=== PATIENT | female | born 1940 | race Caucasian/White ===

== ENCOUNTER 2018-06-09 13:28 | Inpatient (IN) ==
[2018-06-09] MEDS ORDERED: DUONEB (A & A) INH PRN (15:54)
[2018-06-09] MEDS ORDERED: LASIX IV ONE (15:55)
[2018-06-09] MEDS ORDERED: ASPIRIN PO STA (15:55)
--- NOTE | 2018-06-09 16:02 | EKG Report ---
Test Performed on : 06/09/2018 3:56:05 PM Test Reason : chf Blood Pressure : / mmHG Vent. Rate : 061 BPM Atrial Rate : 059 BPM P-R Int : 000 ms QRS Dur : 086 ms QT Int : 362 ms P-R-T Axes : 000 054 -51 degrees QTc Int : 364 ms Atrial fibrillation. Possible Inferior infarct , age undetermined Anterolateral infarct (cited on or before 12-OCT-2017) Abnormal ECG When compared with ECG of 11-FEB-2018 07:10, Questionable change in initial forces of Lateral leads Nonspecific T wave abnormality now evident in Inferior leads Confirmed by Kelsi VILLATORO, Vance Felipe ([id number]) on 06/10/2018 9:22:11 AM
--- NOTE | 2018-06-09 16:25 | Diag Imaging Result Doc PS360 ---
EXAM: CHEST-PORTABLE 06/09/2018 HISTORY: chf TECHNIQUE: AP portable at 1616 COMMENT: There is cardiomegaly. There is no evidence of acute pulmonary parenchymal disease. Compared to the previous study of 02/16/2018 the lungs are better expanded particularly the right lung. IMPRESSION: Cardiomegaly. Electronically signed by Laureano Hennessy 06/09/2018 4:23 PM
[2018-06-09] MEDS: HUMULIN R SUBQ SCH ×2 (16:54→23:58)
--- NOTE | 2018-06-09 17:00 | HISTORY AND PHYSICAL ---
PRIMARY CARE PROVIDER: Dr. Jaqueline Louis. EXCEPTIONAL CHILDREN TEACHER ASSISTANT: Dr. Shalom Childers. CHIEF COMPLAINT: Dyspnea and lower extremity edema. HISTORY OF PRESENT ILLNESS: Mrs. Saeed is a 78-year-old female with a history of ischemic cardiomyopathy, systolic heart failure, atrial fibrillation, and ICD placement, who presents with progressive dyspnea, lower extremity edema, and weight gain over the past month. She reports this morning she woke up and her oxygen machine had run out and she was short of breath and had difficulty breathing all night. She went to Dr. Jaqueline Louis's office, who felt she needed inpatient admission for congestive heart failure. Interestingly, Mrs. Saeed saw Dr. Louis yesterday and had her diuretics changed from Lasix to Demadex to try to diurese her. Unfortunately, this has not improved her volume status. She continued to become more edematous over the last 24 hours. She denies any chest pain. No fever. No mucopurulent sputum production. She denies any hemoptysis or upper respiratory congestion. On physical exam, she is quite edematous in the lower extremities and she has some bibasilar crackles on exam. She is borderline hypotensive with a systolic of 97. We are currently awaiting all diagnostic data. She is going to be admitted for further treatment and evaluation. PAST MEDICAL HISTORY: 1. Ischemic cardiomyopathy with ejection fraction of 25%. 2. Systolic heart failure. 3. Status post ST elevation [place] in 2017 with mid LAD occlusion. 4. Chronic atrial fibrillation. 5. Mitral regurgitation. 6. Morbid obesity. 7. Hypertension. 8. Diabetes mellitus type 2, requiring insulin. PAST SURGICAL HISTORY: She has had an AICD placed, cardiac catheterization with coronary stents placed, cholecystectomy, appendectomy, basal cell carcinoma excision from the nose, two C sections, right knee surgery. FAMILY HISTORY: Significant for diabetes and hypertension. SOCIAL HISTORY: No alcohol, tobacco, or drug use. She is . Daughter is at the bedside. ALLERGIES: Clindamycin and eggs. HOME MEDICATIONS: Yet to be compiled. REVIEW OF SYSTEMS: A 14-point review of systems obtained and found to be negative with the exception of the HPI. PHYSICAL EXAMINATION: VITAL SIGNS: Blood pressure is 97/52, heart rate 64, respiratory rate 18, O2 saturation 97% on room air, and temperature is 97.3. GENERAL: This is a morbidly obese female lying in hospital bed in minimal distress. NEUROLOGIC: She is awake, alert, and oriented. Follows commands without focal deficits. HEENT: The head is atraumatic. Normocephalic. Her pupils are equal, round, and reactive to light. Oral mucosa is moist. NECK: Trachea is midline. CHEST: Bibasilar crackles. CV: Irregular rate and rhythm. S1, S2 is noted. 1 to 2/6 murmur is also noted. GI: Soft and nondistended. Nontender. Bowel sounds are active. EXTREMITIES: 2+ pitting edema bilaterally. Pulses 1+ bilaterally. SKIN: Cool to touch. DIAGNOSTIC DATA: Pending. ASSESSMENT AND PLAN: 1. Acute on chronic systolic congestive heart failure: We will go ahead and give her 60 mg of intravenous Lasix now and continue to diurese her to an edema free state, if possible. She may need a Lasix drip and/or inotrope drip. We have consulted Cardiology. Will order comprehensive labs, including cardiac enzymes. We have ordered an electrocardiogram, chest x- ray, and telemetry. We have also ordered 325 mg of aspirin. 2. Coronary artery disease with ischemic cardiomyopathy: As above, continue trending her enzymes. Will make sure hemoglobin A1c and lipid panel is up to date. Continue all of her appropriate medications. 3. Diabetes: Add patterned sugars, sliding scale insulin. Check hemoglobin A1c. 4. Hypertension, stable: Continue home medications, being cautious of her current blood pressure. 5. Atrial fibrillation: Rate stable. Continue home medications. Check digoxin level. Make sure thyroid function is up to date. 6. Deep venous thrombosis prophylaxis: Likely with lovenox or heparin but will need evaluation of her home medications and her chemistry. Further recommendations to follow. Dictated by CLAUDIO Herrera for Rolf Soares MD cc: CLAUDIO Herrera MD Peter Johnson, MD Lindsay E. Smith, MD I have seen and examined Ms Saeed today, sister was at the bedside. I have also reviewed her labs and imagining studies. Ms Saeed presents with exacerbation of her underlying CHF due to ischemic cardiomyopathy. I agree with the above HPI and the plan reflects my opinion discussed with the FOOD PRODUCTION MACHINE OPERATOR. HIGINIO
[2018-06-09 17:57] LABS: BASO# 0.04 X1000 (0.0-0.2); BASO% 0.8 % (0.0-0.8); EOS# 0.22 X1000 (0.0-0.7); EOS% 4.1 % (0.0-10.0); HEMATOCRIT 36.1 % (37.0-47.0); HEMOGLOBIN 11.1 g/dL (12.0-16.0); LYMPH# 1.08 X1000 (1.2-3.4); LYMPH% 20.3 % (20.5-51.1); MCH 28.5 PG (27-31); MCHC 30.7 g/dL (33-37); MCV 92.6 FL (81-99); MONO# 0.43 X1000 (0.11-0.59); MONO% 8.1 % (1.7-9.3); MPV 12.7 FL (7.4-10.4); NEUT# 3.55 X1000 (1.4-6.5); NEUT% 66.7 % (42.2-75.2); PLT 198 X1000 (130-400); RDW 15.3 % (11.5-14.5); WBC 5.32 X1000 (4.8-10.8)
[2018-06-09 18:01] LABS: INR 1.03; PROTIME 14.3 Seconds (11.0-16.0)
[2018-06-09 18:14] LABS: ALBUMIN 4.6 g/dL (3.5-5.0); CALCIUM 10.2 mg/dL (8.8-10.2); CREATININE 1.3 mg/dL (0.5-0.9); MAGNESIUM 1.7 mg/dL (1.5-2.7); TOTAL BILIRUBIN 0.77 mg/dL (0.20-1.00); TOTAL PROTEIN 6.9 g/dL (6.3-8.3)
[2018-06-09 18:59] LABS: URINE SOURCE CATH
[2018-06-09 19:05] LABS: BILIRUBIN URINE NEGATIVE (NEGATIVE); BLOOD URINE NEGATIVE (NEGATIVE); COLOR YELLOW; GLUCOSE URINE NEGATIVE (NEGATIVE); KETONE URINE NEGATIVE (NEGATIVE); LEUKOCYTES URINE SMALL (NEGATIVE); NITRITE URINE NEGATIVE (NEGATIVE); PROTEIN URINE NEGATIVE (NEGATIVE); SP GRAVITY URINE 1.002; TURBIDITY URINE CLEAR (CLEAR); UR EPITHELIAL CELLS <10 /HPF (<10); URINE BACTERIA 4+ /HPF; URINE RBC <10 /HPF (<10); URINE WBC <10 /HPF (<10); UROBILINOGEN URINE NORMAL (NORMAL)
[2018-06-09] MEDS: DUONEB (A & A) INH SCH ×2 (19:28→23:28)
[2018-06-09] MEDS: COZAAR PO SCH (20:46)
[2018-06-09] MEDS: LIPITOR PO SCH (20:46)
[2018-06-09] MEDS: COREG PO SCH (20:46)
[2018-06-10] MEDS: DUONEB (A & A) INH SCH ×6 (03:02→23:11)
[2018-06-10 06:01] LABS: HEMATOCRIT 30.7 % (37.0-47.0); HEMOGLOBIN 9.5 g/dL (12.0-16.0); MCHC 30.9 g/dL (33-37); MCV 93.6 FL (81-99); MPV 12.4 FL (7.4-10.4); RBC 3.28 XMIL (4.2-5.4); RDW 15.1 % (11.5-14.5); WBC 3.58 X1000 (4.8-10.8)
[2018-06-10 06:28] LABS: CALCIUM 9.1 mg/dL (8.8-10.2); CREATININE 1.2 mg/dL (0.5-0.9); POTASSIUM 4.2 mmol/L (3.5-5.1)
[2018-06-10] MEDS: HUMULIN R SUBQ SCH ×4 (07:34→22:55)
[2018-06-10] MEDS: FOLIC ACID PO SCH (09:22)
[2018-06-10] MEDS: ALDACTONE PO SCH (09:22)
[2018-06-10] MEDS: PLAVIX PO SCH (09:22)
[2018-06-10] MEDS: COZAAR PO SCH ×2 (09:22→22:49)
[2018-06-10] MEDS: ICAR-C PO SCH (09:22)
[2018-06-10] MEDS: LANOXIN PO SCH (09:22)
[2018-06-10] MEDS: COREG PO SCH ×2 (09:22→22:49)
[2018-06-10] MEDS: LASIX IV SCH ×2 (09:23→17:27)
--- NOTE | 2018-06-10 10:21 | CARDIOLOGY CONSULTATION ---
DATE: 06/10/2018 CHIEF COMPLAINT: Dyspnea, swelling. HISTORY: A 78-year-old female patient of Dr. Jaqueline Louis and Dr. Shalom Childers presented for admission on June 09 with complaints of increasing dyspnea that has been going on for a few days. She has also noted increasing swelling of her lower extremities. She went to see her doctor who changed her diuretics from Lasix to Demadex. However, no good response was noted. The patient admitted to the fact that she had been eating potato chips a few days prior to admission. Upon presentation, she has been given intravenous Lasix with some improvement of her swelling. Her initial chest x-ray done on June 09 shows cardiomegaly. Her proBNP level at the time of initial encounter is 24,885. Her troponin levels have been checked a total of 3 times. They are negative. A 12-lead electrocardiogram shows the presence of sinus rhythm with poor R-wave progression across the precordial leads consistent with an anterolateral MS that is old. The patient is not having any chest pain. However, she has started to experience cough. Her sister who lives with her and is at the bedside says "My sister is sick," and she also stated "I am afraid she may have the flu." The patient denies having any chest pain. A urinalysis has been done and there is an initial growth of a gram-negative lalo in the urine. PAST HISTORY: Her past history is very extensive. She has had a previous myocardial infarction with coronary interventions in the past. As a consequence of that, she has significantly impaired left ventricular systolic function with an ejection fraction of 25% demonstrated by imaging cardiac studies. She had an acute MS in 2017. She has atrial fibrillation. This is persistent or permanent. She is obese with a body mass index of 36.8. She has been on oxygen at home. She has a history of hypertension. She has diabetes mellitus type 2, and she is very hard of hearing. SURGICAL HISTORY: She had implantation of AICD in August of 2017 in [place]. She has had previous cholecystectomy, right knee surgery, appendectomy. SOCIAL HISTORY: She is awake. She has 2 grownup children. She is currently living with her sister. FAMILY HISTORY: Positive for both parents having heart disease, CHF, and coronary heart disease. REVIEW OF SYSTEMS: In general, the patient has limited exercise tolerance. She only functions within her home, and she uses oxygen all the time. She has not experienced any chest pain in a long time. No cough with expectoration. No redness of the legs or pain in the legs. No abdominal pain, nausea, vomiting, or diarrhea. No fever. No recent stroke or past stroke. No psychiatric illness. No hematological conditions. Of note, the patient has been admitted to this hospital several times in the past with decompensation of CHF, and on one of the admissions she had a significant urinary tract infection. This presentation could be due a recurrence of that infection. PHYSICAL EXAMINATION: Vital signs: Today's blood pressure is 105/53, temperature 97.9, pulse anywhere from 48 to 72, respirations 24. General: She is awake, obese, elderly , in no distress. HEENT: Unremarkable. Chest: Essentially clear lungs to auscultation. I do not hear crepitance or wheezes. Cardiac: Heart sounds are irregularly irregular, distant. Rate is controlled. Abdomen: Obese, nontender. Extremities: Showed trace brawny edema. There is a slight redness in the pretibial areas of both legs. However, the patient states that that is her normal color. Pulses are good. Neurological: Other then being hard of hearing, she follows commands, moves four extremities, interacts appropriately, answers appropriately. BLOOD WORK: White cell count 3580, hemoglobin 9.5, hematocrit 30.7. Sodium 142 , potassium 4.2, BUN 40, creatinine 1.2. IMPRESSION: 1. Patient presenting with exacerbation of chronic systolic heart failure, CHF class III to IV, with severely impaired systolic function. The patient has a history of coronary heart disease, myocardial infarction, ischemic cardiomyopathy.The possibility of upper respiratory infection is highly likely also as a trigger of her CHF. In addition, dietary indiscretion is another strong factor. 2. Status post automatic implanted cardiac defibrillator (AICD). 3. Morbid obesity. 4. Diabetes mellitus type 2. 5. Likely urinary tract infection. RECOMMENDATION: In principle, I agree with your current general management. We will follow her and at would continue her present medical therapy as initiated by the Hospitalist Service. She is on IV Lasix, we will continue that. Spironolactone will be continued. I will keep her on losartan, low-dose aspirin, and atorvastatin as well as Plavix. We will see how she does. Overall prognosis is guarded given her Low EF. cc: Brett Knapp MD [facility]
[2018-06-10 10:22] LABS: HEMOGLOBIN A1C 6.6 % (4.8-6.0)
--- NOTE | 2018-06-10 10:23 | PROGRESS NOTE ---
DATE: 06/10/2018 SUBJECTIVE: Patient reports feeling much better after we started Lasix on her. She reports no pain on urination, but she reported ever since she got a catheter she ended up having a urinary tract infection. OBJECTIVE: Vital Signs: Temperature 97.9, heart rate 48, respiratory rate 16, blood pressure 105/53, O2 sat 97% on 2 L nasal cannula. General: This is a chronically ill- looking 78-year-old female lying in bed in no acute distress. HEENT: Head is normocephalic, atraumatic. Mucous membranes dry. Anicteric sclerae and pale conjunctivae. Neck: JVD is not possible to evaluate because of neck girth. Cardiovascular: S1, S2 heard. Irregularly irregular. No murmurs, gallops or rubs. Regular rate. Respiratory: There are definitely less bibasilar crackles noted in both pulmonary rojo. Patient is not using any accessory muscles or having work of breathing. Abdomen: Soft, nontender to palpation. Bowel sounds present. No organomegaly. Extremities: 2+ pitting edema noted in both lower extremities all the way up to both knees. Patient does have peripheral pulses present, but diminished. Neurologic: Patient is alert and oriented x 3. Moves 4 extremities. Hard of hearing. LABORATORY DATA: White cell count 3.58, hemoglobin 9.5, hematocrit 30.7, platelet 147,000. BMP remarkable for creatinine 1.2, glucose 118. ASSESSMENT AND PLAN: 1. Acute on chronic systolic congestive heart failure. The patient receiving 40 mg of Lasix every q.12 hours. Clinically, patient is feeling less short of breath. Less edema noted in both lower extremities. At this point, we will continue with the same management. Blood pressure is okay, so we will continue with same medications. So far we have checked troponins. 2. Coronary artery disease with ischemic cardiomyopathy. As we mentioned before , the ejection fraction of patient has been documented at 25%. So, at this point, we will continue with the same medications. Troponin has been checked 3 times and are so far negative. 3. Diabetes mellitus type 2. Blood sugars are well controlled. We will continue with the same management. We are using sliding scale insulin and Accu-Cheks before meals and also at bedtime. 4. Hypertension. Blood pressure is under control. We will continue with the same medications. 5. Atrial fibrillation. Rate is controlled. We will continue with the same management now. TSH has been checked and is okay. 6. DVT prophylaxis. Patient is on Lovenox. 7. Disposition: We will continue to monitor this patient closely. I have seen and consulted for Cardiology. We will follow recommendations. cc: Mu Palma MD MTDD
[2018-06-10] MEDS: ROCEPHIN 1 GM in NS 50 ML IV SCH (11:30)
[2018-06-10] MEDS: LIPITOR PO SCH (22:50)
[2018-06-11] MEDS: DUONEB (A & A) INH SCH ×5 (03:20→19:48)
[2018-06-11] MEDS: HUMULIN R SUBQ SCH ×4 (06:24→22:45)
[2018-06-11 06:30] LABS: HEMATOCRIT 29.8 % (37.0-47.0); HEMOGLOBIN 9.2 g/dL (12.0-16.0); MCH 28.8 PG (27-31); MCHC 30.9 g/dL (33-37); MCV 93.1 FL (81-99); MPV 12.5 FL (7.4-10.4); RBC 3.2 XMIL (4.2-5.4); RDW 15.1 % (11.5-14.5); WBC 4.43 X1000 (4.8-10.8)
[2018-06-11 06:49] LABS: CALCIUM 9.2 mg/dL (8.8-10.2); CREATININE 1.2 mg/dL (0.5-0.9)
[2018-06-11] MEDS: ICAR-C PO SCH (08:53)
[2018-06-11] MEDS: LASIX IV SCH ×2 (08:53→17:48)
[2018-06-11] MEDS: PLAVIX PO SCH (08:54)
[2018-06-11] MEDS: FOLIC ACID PO SCH (08:55)
[2018-06-11] MEDS: ROCEPHIN 1 GM in NS 50 ML IV SCH (08:56)
[2018-06-11] MEDS: LANOXIN PO SCH (08:58)
[2018-06-11] MEDS: COREG PO SCH ×2 (09:02→22:44)
[2018-06-11] MEDS: COZAAR PO SCH ×2 (09:02→22:44)
[2018-06-11] MEDS: ALDACTONE PO SCH (09:02)
--- NOTE | 2018-06-11 14:12 | Diag Imaging Result Doc PS360 ---
CHEST-2 VIEWS - 06/11/2018 INDICATION: pulmonary edema COMPARISON: 06/09/2018 FINDINGS: Stable left-sided pacemaker. Stable mild cardiomegaly. Pulmonary vascularity is grossly normal. No infiltrates or edema. No pneumothorax or pleural effusion. IMPRESSION: Cardiomegaly. Electronically signed by Mario Singleton 06/11/2018 2:09 PM
[2018-06-11] MEDS: TESSALON PO SCH (17:48)
[2018-06-11] MEDS: LIPITOR PO SCH (22:44)
[2018-06-12] MEDS: DUONEB (A & A) INH SCH ×7 (00:08→23:59)
--- NOTE | 2018-06-12 00:57 | PROGRESS NOTE ---
DATE: 06/11/2018 SUBJECTIVE: This patient is feeling better, but she is complaining of cough. Her creatinine is about the same compared with yesterday. So far, we have been having a negative balance of 1.7 L, hemoglobin A1c 6.6. OBJECTIVE: Vital Signs: Temperature 98.3 degrees, pulse 72, respiratory rate 17, blood pressure 104/58, oxygen saturation 98 on 2 L of nasal cannula. HEENT: Head normocephalic. No trauma. PERRLA. Neck: Supple. No JVD. No masses. Central trachea. Chest: Decreased breath sounds at the bases, with some crackles. Cardiovascular: Irregularly, irregular rate and rhythm. Abdomen: Soft, nontender, nondistended. No hepatosplenomegaly. Extremities: 1 to 2+ lower extremity edema. No clubbing. No cyanosis. Neurological: The patient is alert and oriented x3. She is hard of hearing. LABORATORY: WBC 4.4, hemoglobin 9.2, hematocrit 29.8, platelets 152,000. Sodium 141, potassium 4, chloride 97, bicarbonate 30, BUN 34, creatinine 1.2, glucose 117, calcium 9.2, magnesium 1.7. ASSESSMENT AND PLAN: 1. [id number] systolic heart failure. Will continue with the same management. Kidney function has been stable. So far, 1.7 L negative balance. She is breathing better. We will continue to monitor. 2. History of automatic implanted cardioverter defibrillator placement. Aware. She is not complaining of chest pain. 3. Type 2 diabetes. Stable. Hemoglobin A1c 6.6. We will continue with same management. 4. Morbid obesity. Aware. Diet and exercise has been discussed. 5. Hypertension, stable. 6. Atrial fibrillation. Continue with same management. 7. History of coronary artery disease. Like I mentioned before, this patient has an automatic implanted cardioverter defibrillator placed. Will monitor. No chest pain. 8. Deep vein thrombosis prophylaxis. Continue with the same treatment. cc: Satnam Greenfield MD
[2018-06-12 06:23] LABS: HEMATOCRIT 30.3 % (37.0-47.0); HEMOGLOBIN 9.3 g/dL (12.0-16.0); MCH 28.8 PG (27-31); MCHC 30.7 g/dL (33-37); MCV 93.8 FL (81-99); MPV 12.2 FL (7.4-10.4); RBC 3.23 XMIL (4.2-5.4); RDW 15.2 % (11.5-14.5); WBC 4.86 X1000 (4.8-10.8)
[2018-06-12 06:48] LABS: CALCIUM 8.6 mg/dL (8.8-10.2); CREATININE 1.1 mg/dL (0.5-0.9); POTASSIUM 4.1 mmol/L (3.5-5.1)
[2018-06-12] MEDS: HUMULIN R SUBQ SCH ×4 (08:13→21:50)
[2018-06-12] MEDS: LASIX IV SCH ×2 (11:32→17:28)
[2018-06-12] MEDS: ROCEPHIN 1 GM in NS 50 ML IV SCH (11:35)
[2018-06-12] MEDS: ALDACTONE PO SCH (11:35)
[2018-06-12] MEDS: TESSALON PO SCH ×3 (11:36→17:29)
[2018-06-12] MEDS: COREG PO SCH ×2 (11:36→21:49)
[2018-06-12] MEDS: ICAR-C PO SCH (11:36)
[2018-06-12] MEDS: FOLIC ACID PO SCH (11:37)
[2018-06-12] MEDS: LANOXIN PO SCH (11:37)
[2018-06-12] MEDS: PLAVIX PO SCH (11:37)
[2018-06-12] MEDS: COZAAR PO SCH ×2 (11:40→21:49)
--- NOTE | 2018-06-12 14:34 | PROGRESS NOTE ---
DATE: 06/12/2018 SUBJECTIVE: This patient is feeling better. Vital Signs are stable as well as the lab work. Kidney function at baseline, proBNP decreased from 24,885-17,794. We will continue with diuresis, so far we have a negative balance of 2.1 L. No chest pain. Mild shortness of breath. OBJECTIVE: Vital Signs: Temperature 98.9 degrees, pulse 69, respiratory rate 16, blood pressure 134/64, oxygen saturation 98 on 2 L of nasal cannula. HEENT: Head normocephalic. No trauma. PERRLA. Neck: Supple. No JVD. No masses. Central trachea. Chest: Decreased breath sounds at the bases with some rales. Cardiovascular: Irregularly irregular rate and rhythm. Abdomen: Soft, nontender, nondistended. No hepatosplenomegaly. Extremities: With 1+ lower extremity edema. No clubbing. No cyanosis. Neurological: The patient is alert and oriented x3. No focal deficits. LABORATORY DATA: WBC 4.8, hemoglobin 9.3, hematocrit 30.3, platelets 163,000. Sodium 140, potassium 4.1, chloride 96, bicarbonate 29, BUN 36, creatinine 1.1, glucose 138, calcium 8.6, magnesium 1.9. ASSESSMENT AND PLAN: 1. Acute on chronic systolic heart failure. We will continue with the same management. Her ejection fraction is really low. Kidney function has been stable so far. We have a negative balance of 2.1 L, she is breathing better, continue with the same management. 2. History of automatic implantable cardioverter-defibrillator placement. Aware. She has no complaint of chest pain. 3. Type 2 diabetes. Stable. Hemoglobin A1c is 6.6. Continue with the same management. 4. Morbid obesity. Aware. Diet and exercise has been discussed. 5. Hypertension. Sable. 6. Atrial fibrillation. Continue with the same management. 7. History of coronary artery disease. Like I mentioned before this patient has an automatic implantable cardioverter-defibrillator placed, we will monitor, she is not having pain. 8. Deep vein thrombosis prophylaxis. Continue with the same management. cc: Satnam Greenfield MD
[2018-06-12] MEDS: LIPITOR PO SCH (21:49)
[2018-06-13] MEDS: DUONEB (A & A) INH SCH ×7 (03:31→23:45)
[2018-06-13 06:35] LABS: BASO# 0.02 X1000 (0.0-0.2); BASO% 0.4 % (0.0-0.8); EOS# 0.27 X1000 (0.0-0.7); EOS% 5.2 % (0.0-10.0); HEMATOCRIT 31.1 % (37.0-47.0); HEMOGLOBIN 9.4 g/dL (12.0-16.0); LYMPH# 0.62 X1000 (1.2-3.4); LYMPH% 11.9 % (20.5-51.1); MCH 27.8 PG (27-31); MCHC 30.2 g/dL (33-37); MONO# 0.41 X1000 (0.11-0.59); MONO% 7.9 % (1.7-9.3); MPV 12.2 FL (7.4-10.4); NEUT# 3.87 X1000 (1.4-6.5); NEUT% 74.6 % (42.2-75.2); PLT 178 X1000 (130-400); RBC 3.38 XMIL (4.2-5.4); RDW 15.1 % (11.5-14.5); WBC 5.19 X1000 (4.8-10.8)
[2018-06-13] MEDS: HUMULIN R SUBQ SCH ×4 (06:39→22:30)
[2018-06-13 06:57] LABS: CALCIUM 9.3 mg/dL (8.8-10.2); CREATININE 1.3 mg/dL (0.5-0.9); MAGNESIUM 1.9 mg/dL (1.5-2.7); PHOSPHORUS 3.8 mg/dL (2.7-4.5)
--- NOTE | 2018-06-13 07:03 | Diag Imaging Result Doc PS360 ---
EXAM: CHEST-1 VIEW HISTORY: chf TECHNIQUE: Portable chest single view COMPARISON: 06/11/2018 FINDINGS: Poor inspiratory effort. The heart is mildly prominent. There is a left-sided pacemaker. Mild vascular distention is more pronounced. No consolidation. No pleural effusions identified. IMPRESSION: Mild pulmonary edema Electronically signed by Willie Medrano 06/13/2018 7:00 AM
[2018-06-13] MEDS: PLAVIX PO SCH (08:29)
[2018-06-13] MEDS: LANOXIN PO SCH (08:29)
[2018-06-13] MEDS: ALDACTONE PO SCH (08:29)
[2018-06-13] MEDS: ICAR-C PO SCH (08:29)
[2018-06-13] MEDS: COREG PO SCH ×2 (08:29→22:33)
[2018-06-13] MEDS: FOLIC ACID PO SCH (08:29)
[2018-06-13] MEDS: TESSALON PO SCH ×3 (08:29→17:13)
[2018-06-13] MEDS: COZAAR PO SCH ×2 (08:32→22:35)
[2018-06-13] MEDS: LASIX IV SCH ×2 (10:26→22:42)
[2018-06-13] MEDS: ROCEPHIN 1 GM in NS 50 ML IV SCH (10:26)
--- NOTE | 2018-06-13 11:54 | PROGRESS NOTE ---
DATE: 06/13/2018 SUBJECTIVE: This patient is feeling better. Her proBNP is still elevated. I will ask for physical therapy today and occupational therapy to evaluate this patient. OBJECTIVE: Vital Signs: Temperature 97.8 degrees, pulse 72, respiratory rate 18, blood pressure 125/78, oxygen saturation 100% on 2 L of nasal cannula. HEENT: Head normocephalic. No trauma. PERRLA. Neck: Supple. No JVD. No masses. Central trachea. Chest: Decreased breath sounds at the bases with some rales. Abdomen: Soft, nontender, nondistended. No hepatosplenomegaly. Cardiovascular: Irregularly irregular rate and rhythm. Extremities: There is 1+ lower extremity edema. No clubbing. No cyanosis. Neurological Examination: The patient is alert and oriented x3. No focal deficits but generalized weakness. Laboratory: WBC 5.1, hemoglobin 9.4, hematocrit 31.1, platelets 178,000. Sodium 142, potassium 4, chloride 99, bicarbonate 29, BUN 31, creatinine 1.3, glucose 138, calcium 9.3, magnesium 1.9. ProBNP 17,676. ASSESSMENT AND PLAN: 1. Acute on chronic systolic heart failure. We will continue with the same management. Low ejection fraction. Kidney function has been stable so far. We have a total negative balance of 4.3 liters. She is tolerating oral intake. We will continue to monitor. 2. History of automatic implantable cardioverter defibrillator placement. Aware. No chest pain at this moment. 3. Type 2 diabetes. Hemoglobin A1c 6.6. Continue with the same management. 4. Morbid obesity. Aware. Diet and exercise have been discussed. 5. Hypertension, stable. 6. Atrial fibrillation. Continue with the same management. 7. History of coronary artery disease. No chest pain. Automatic implantable cardioverter defibrillator placed. Continue to monitor. 8. Deep vein thrombosis prophylaxis. Continue with the same management. Also, she will be placed on physical therapy. 9. Generalized weakness. Physical therapy and occupational therapy have been requested. cc: Satnam Greenfield MD
[2018-06-13] MEDS: LIPITOR PO SCH ×2 (22:30→22:34)
[2018-06-14] MEDS: HUMULIN R SUBQ SCH ×4 (06:55→21:43)
[2018-06-14] MEDS: DUONEB (A & A) INH SCH ×5 (07:49→23:34)
[2018-06-14 08:20] LABS: CALCIUM 8.8 mg/dL (8.8-10.2); CREATININE 1.2 mg/dL (0.5-0.9)
[2018-06-14] MEDS: LASIX IV SCH ×2 (09:19→21:42)
[2018-06-14] MEDS: ROCEPHIN 1 GM in NS 50 ML IV SCH (09:20)
[2018-06-14] MEDS: FOLIC ACID PO SCH (09:23)
[2018-06-14] MEDS: COZAAR PO SCH ×2 (09:23→21:43)
[2018-06-14] MEDS: ALDACTONE PO SCH (09:23)
[2018-06-14] MEDS: LANOXIN PO SCH (09:23)
[2018-06-14] MEDS: ICAR-C PO SCH (09:24)
[2018-06-14] MEDS: COREG PO SCH ×2 (09:24→21:43)
[2018-06-14] MEDS: TESSALON PO SCH ×3 (09:24→18:53)
[2018-06-14] MEDS: PLAVIX PO SCH (09:24)
[2018-06-14] MEDS: INVANZ 1 GM/NS 1 GM/50 ML IVPB IV SCH (11:44)
--- NOTE | 2018-06-14 12:33 | PROGRESS NOTE ---
DATE: 06/14/2018 SUBJECTIVE: The patient reports feeling better. She reports at home she uses a walker and a wheelchair. No other issues noted as per nursing staff overnight. OBJECTIVE: Vital Signs: Temperature 98.2, heart rate 56, respiratory 21, blood pressure 115/62, O2 saturation 100% on 2 L nasal cannula. General Examination: This is a chronically ill-looking, 78-year-old female lying in bed in no acute distress. HEENT: Head is normocephalic and atraumatic. Neck: No JVD noted. No carotid bruits. No lymphadenopathy. No thyromegaly. Cardiovascular: S1, S2 heard. Irregularly irregular. No murmurs, gallops, or rubs noted. Respiratory: Decreased breath sounds globally with some crackles in both pulmonary bases. Patient is not using any accessory muscles or having work of breathing. Abdomen is soft, nontender to palpation. Nondistended. Bowel sounds present. No organomegaly. Extremities 1+ pitting edema in both lower extremities. No clubbing or cyanosis noted. Neurologic: Patient is alert and oriented x3. Moves 4 extremities. LABORATORY DATA: BMP shows creatinine 1.2 with glucose 150. ASSESSMENT AND PLAN: 1. Iwuzi-[id number] systolic congestive heart failure. Patient is receiving Lasix 60 mg IV q.12 hours. Cardiology is following. Renal function has been stable so far. At this point, considering that she is making good amount of urine and has good renal function, we will continue with the same management. 2. History of automatic implantable cardioverter-defibrillator placement. No chest pain noted. The patient does not report any chest discomfort. We will continue to monitor. 3. Diabetes mellitus, type 2, well controlled with hemoglobin A1c 6.6. We will continue with sliding scale insulin as well. 4. Hypertension. Blood pressure is under control. We will continue with the same management. 5. Atrial fibrillation. Heart rate is under control. We will continue with the same medication. 6. History of coronary artery disease. No chest pain noted. The patient has a cardioverter- defibrillator. 7. Deep vein thrombosis prophylaxis. The patient is on sequential compression devices. 8. General weakness. Physical therapy and occupational therapy have been consulted. I talked to her about the possibility of going to rehab, and she said she had been in rehab 4 months ago around Thanksgiving for 6 weeks, and she really does not want to go back there. She prefers to have home health services. Stat. We will continue to monitor. cc: Mu Palma MD
--- NOTE | 2018-06-14 17:24 | INFECTIOUS DISEASE PROGRESS NO ---
DATE: 06/14/2018 CONCLUSION: The patient has an extended spectrum beta lactamase producing E coli urinary tract infection. She had this infection prior to coming in the hospital as manifested by the fact that the patient had a Jacobsen catheter put in and a urine was immediately taken and it grew an extended spectrum beta lactamase producing E coli. The patient is asymptomatic as regarding her urinary tract infection. RECOMMENDATION: Since the patient has been instrumented and will have further instrumentation, I think it will be reasonable to continue ertapenem. DISCUSSION: The patient was admitted the hospital because of fluid overload. She had a catheter put in her bladder and the culture from it grew an extended spectrum beta lactamase producing E coli. The patient was not having dysuria or flank pain. She was not having any chills or shakes. LABORATORY STUDIES: CBC shows a white count of 5190, hemoglobin 9.4, platelet count 178,000. Creatinine is 1.2. GFR is 43. Chest x-ray shows findings consistent with pulmonary edema. PAST MEDICAL HISTORY/REVIEW OF SYSTEMS: Eyes and ears: Patient has decreased vision and hearing. Neck: No stiffness. Respiratory: No cough or shortness of breath. Cardiac: No chest pain or palpitations. GI: No nausea, vomiting, or diarrhea. : See present illness. Bones, joints, muscles: No swollen joints or muscle aches . Endocrine: Patient has diabetes but not thyroid disease. Neurologic: No seizures. No recent loss of motor or sensory function. PREVIOUS HOSPITALIZATIONS AND OPERATIONS: Patient has had a myocardial infarction and placement of a left-sided defibrillator. MEDICAL DISEASES: Positive for diabetes mellitus, hypertension, myocardial infarction, skin cancer, osteoarthritis and cardiac arrhythmia requiring placement of a defibrillator. INFECTIOUS DISEASE HISTORY: The patient had a urinary tract infection prior to having her catheter inserted. See present illness. FAMILY HISTORY: Positive for diabetes mellitus, cancer and angina pectoris. SOCIAL HISTORY: The patient lives in [place] with her family. She is a . She has cats as a pet. ALLERGIES: She is allergic to clindamycin and eggs. HOME MEDICATIONS: Include Tylenol, albuterol, Lipitor, carvedilol, Plavix, Lanoxin, furosemide, Neurontin, metformin, Entresto. PHYSICAL EXAMINATION: Vital Signs: Temperature is 98.2 degrees, pulse is 67, respirations 22, blood pressure 104/41. The patient is 4 feet 10 inches tall. She weighs 169 pounds. General: This is an obese, elderly female. She is in no acute distress. Head, eyes, ears, nose and throat: The patient has decreased hearing and vision. Neck: No stiffness. Respiratory: No cough or shortness of breath. Cardiac: No chest pain or palpitations. Gastrointestinal: No nausea, vomiting, or diarrhea. Genitourinary: See present illness. Bones, joints, muscles: No swollen joint. No muscle tenderness. Neurologic: The patient is awake. She can move her extremities. There is no tremor. Her sensation is intact to touch. Her memory as regarding her medical history is decreased. Integument: No rash. Thank you for the consult. cc: Bruce Vo MD
[2018-06-14] MEDS: LIPITOR PO SCH (21:43)
[2018-06-15] MEDS: DUONEB (A & A) INH SCH ×6 (03:47→22:47)
[2018-06-15] MEDS: HUMULIN R SUBQ SCH ×4 (07:08→23:28)
[2018-06-15] MEDS: ICAR-C PO SCH (08:28)
[2018-06-15] MEDS: ALDACTONE PO SCH (08:29)
[2018-06-15] MEDS: LASIX IV SCH ×3 (08:29→20:41)
[2018-06-15] MEDS: COREG PO SCH ×2 (08:29→20:34)
[2018-06-15] MEDS: INVANZ 1 GM/NS 1 GM/50 ML IVPB IV SCH (08:29)
[2018-06-15] MEDS: PLAVIX PO SCH (08:29)
[2018-06-15] MEDS: COZAAR PO SCH ×2 (08:29→20:34)
[2018-06-15] MEDS: FOLIC ACID PO SCH (08:29)
[2018-06-15] MEDS: TESSALON PO SCH ×3 (08:29→16:31)
[2018-06-15] MEDS: LANOXIN PO SCH (08:30)
--- NOTE | 2018-06-15 09:18 | Diag Imaging Result Doc PS360 ---
EXAM: CHEST-2 VIEWS 06/15/2018 HISTORY: pulmonary edema TECHNIQUE: Two views the chest COMMENT: There is cardiomegaly. There is minimal ill-defined opacity in the right costophrenic angle region. There are calcifications in the mitral valve annulus and a calcified granuloma is present in the right base. Compared to 06/13/2018 there has been no significant change. IMPRESSION: Cardiomegaly and mild pulmonary edema stable since 06/13/2018. Electronically signed by Laureano Hennessy 06/15/2018 9:16 AM
--- NOTE | 2018-06-15 15:32 | PROGRESS NOTE ---
DATE: 06/15/2018 SUBJECTIVE: The patient reports feeling fine; is still feeling somewhat weak. Denies any other complaints. OBJECTIVE: Vital Signs: Temperature 97.5 degrees, heart rate 52, respiratory rate 16, blood pressure 112/48, O2 saturation 96% 2 L nasal cannula. General Examination: This is a chronically ill-looking, 78-year-old female, lying in bed in no acute distress. HEENT: Head is normocephalic, atraumatic. Neck: No JVD noted. No carotid bruits. No lymphadenopathy. No thyromegaly. Cardiovascular exam: S1, S2 heard. Irregularly irregular heart rhythm. No murmurs, gallops, or rubs noted. Respiratory exam: Respiratory exam with decreased breath sounds globally. Still some crackles noted in both pulmonary bases. Patient not using any accessory muscles or having work of breathing. Abdomen: Soft, nontender to palpation. Bowel sounds present. No organomegaly. Extremities: There is 1+ pitting edema in both lower extremities. A little bit better in comparing with previous days. Peripheral pulses present in both legs. Neurological exam: Patient alert and oriented x3. Moves 4 extremities. LABORATORY DATA: White cell count 5.19 with BMP that shows creatinine 1.2. ASSESSMENT AND PLAN: 1. Acute on chronic systolic congestive heart failure. Currently, as per Cardiology recommendations, patient is receiving 60 mg of Lasix every 12 hours intravenous. We will continue with the same management. Renal function is stable so far. We will check basic metabolic panel tomorrow. 2. Extended spectrum beta lactamase Escherichia coli urinary tract infection. The patient has been started on ertapenem. Dr. Vo from Infectious Disease has being consulted. We will follow recommendations. 3. History of automatic implantable cardioverter-defibrillator placement. Patient is fine. No chest pain noted, no palpitations. We will continue with same management. 4. Hypertension. Blood pressure is under control. We will continue with the same medications. 5. Atrial fibrillation. Heart rate is under control. We will continue with same management. 6. History of coronary artery disease is stable. No chest pain noted. 7. General weakness. Physical therapy working with this patient, but she stated clearly she does not want to go to rehabilitation at this time. 8. Disposition:. Will sent home with home health whenever it is cleared by Infectious Disease. cc: Mu Palma MD
--- NOTE | 2018-06-15 16:01 | INFECTIOUS DISEASE PROGRESS NO ---
DATE: 06/15/2018 PRESENT ILLNESS: The patient has an extended spectrum beta lactamase producing E coli urinary tract infection. MEDICATIONS: The patient is receiving ertapenem 1 g IV daily. PHYSICAL EXAMINATION: Vital Signs: Temperature is 97.5 degrees, pulse 52, respirations 16, blood pressure 112/48. General: This is an elderly female; she is in no acute distress. Head/eyes/ears/nose/throat: She can hear my spoken words and see near objects. She does not have any white patches on her tongue. Neck: No stiffness. Lungs: Clear to auscultation. Thorax: The patient has a defibrillator in place on the left side. Cardiovascular: Heart rate is regular. Abdomen: Soft and nontender. Neurologic: Patient is awake. She can move her extremities. There is no tremor. LAB AND X-RAY: Chest x-ray shows pulmonary edema. There is no new lab for today. ASSESSMENT AND PLAN: Patient has an extended spectrum beta lactamase producing Escherichia coli urinary tract infection. My plan is to continue ertapenem. COMORBIDITIES: The patient's comorbidities reveal she has diabetes mellitus. cc: Bruce Vo MD
[2018-06-15 16:22] LABS: BASO# 0.03 X1000 (0.0-0.2); BASO% 0.6 % (0.0-0.8); EOS# 0.32 X1000 (0.0-0.7); EOS% 6.1 % (0.0-10.0); HEMATOCRIT 30.3 % (37.0-47.0); HEMOGLOBIN 9.4 g/dL (12.0-16.0); LYMPH% 13.3 % (20.5-51.1); MCH 28.7 PG (27-31); MCV 92.4 FL (81-99); MONO# 0.36 X1000 (0.11-0.59); MONO% 6.8 % (1.7-9.3); MPV 11.9 FL (7.4-10.4); NEUT# 3.85 X1000 (1.4-6.5); NEUT% 73.2 % (42.2-75.2); PLT 197 X1000 (130-400); RBC 3.28 XMIL (4.2-5.4); RDW 15.5 % (11.5-14.5); WBC 5.26 X1000 (4.8-10.8)
[2018-06-15 16:35] LABS: INR 1.15; PROTIME 15.6 Seconds (11.0-16.0)
[2018-06-15] MEDS: LIPITOR PO SCH (20:34)
[2018-06-16] MEDS: DUONEB (A & A) INH SCH ×4 (03:17→15:25)
[2018-06-16] MEDS: HUMULIN R SUBQ SCH ×3 (06:42→17:25)
[2018-06-16 07:41] LABS: BASO# 0.03 X1000 (0.0-0.2); BASO% 0.7 % (0.0-0.8); EOS# 0.32 X1000 (0.0-0.7); EOS% 7.3 % (0.0-10.0); HEMATOCRIT 29.8 % (37.0-47.0); HEMOGLOBIN 9.1 g/dL (12.0-16.0); LYMPH# 0.65 X1000 (1.2-3.4); LYMPH% 14.8 % (20.5-51.1); MCH 28.5 PG (27-31); MCHC 30.5 g/dL (33-37); MCV 93.4 FL (81-99); MONO# 0.34 X1000 (0.11-0.59); MONO% 7.7 % (1.7-9.3); MPV 11.6 FL (7.4-10.4); NEUT# 3.05 X1000 (1.4-6.5); NEUT% 69.5 % (42.2-75.2); PLT 182 X1000 (130-400); RBC 3.19 XMIL (4.2-5.4); RDW 15.5 % (11.5-14.5); WBC 4.39 X1000 (4.8-10.8)
[2018-06-16 08:03] LABS: CALCIUM 9.1 mg/dL (8.8-10.2); CREATININE 1.1 mg/dL (0.5-0.9); POTASSIUM 4.3 mmol/L (3.5-5.1)
[2018-06-16] MEDS ORDERED: NS 250 ML ONE (08:52)
[2018-06-16] MEDS: LASIX IV SCH (09:26)
[2018-06-16] MEDS: ICAR-C PO SCH (09:27)
[2018-06-16] MEDS: ALDACTONE PO SCH (09:27)
[2018-06-16] MEDS: FOLIC ACID PO SCH (09:27)
[2018-06-16] MEDS: TESSALON PO SCH ×3 (09:27→17:26)
[2018-06-16] MEDS: COREG PO SCH (09:27)
[2018-06-16] MEDS: PLAVIX PO SCH (09:28)
[2018-06-16] MEDS: INVANZ 1 GM/NS 1 GM/50 ML IVPB IV SCH (09:28)
[2018-06-16] MEDS: COZAAR PO SCH (09:28)
[2018-06-16] MEDS: LANOXIN PO SCH (09:29)
--- NOTE | 2018-06-16 13:00 | Diag Imaging Result Doc PS360 ---
EXAM: CHEST-PORTABLE 06/16/2018 HISTORY: PICC line placement TECHNIQUE: AP portable at 1246 COMMENT: There is cardiomegaly. There is a PICC line on the right with its tip in superior vena cava. There is a pacemaker on the left. Compared to the previous examination of 06/15/2018 the appearance of the chest has not changed significantly considering differences in technique and inspiration. IMPRESSION: Cardiomegaly. Electronically signed by Laureano Hennessy 06/16/2018 12:57 PM
[2018-06-16 16:34] VITALS: BP 111/59
--- NOTE | 2018-06-17 17:27 | DISCHARGE SUMMARY ---
ADMISSION DATE: 06/09/2018 DISCHARGE DATE: 06/16/2018 DISCHARGE DIAGNOSES: 1. Acute on chronic systolic congestive heart failure, improved. 2. Coronary artery disease with ischemic cardiomyopathy, stable. 3. Diabetes mellitus type 2. 4. Hypertension. 5. Atrial fibrillation, rate controlled. 6. Extended-spectrum beta-lactamase Escherichia coli urinary tract infection. CONSULTATIONS: 1. Dr. Bruce Vo from infectious disease. 2. Dr. Brett Knapp from cardiology. PROCEDURES: 1. Chest x-ray done on admission showed cardiomegaly. 2. Chest x-ray done on 06/15/2018 showed cardiomegaly and mild pulmonary edema, stable. HOSPITAL COURSE: This is basically a 78-year-old female with a history of ischemic cardiomyopathy, systolic congestive heart failure, atrial fibrillation, and ICD placement who presented to the emergency department complaining of progressive dyspnea, lower extremity edema, and weight gain over the last month. She was found to be in acute systolic congestive heart failure, so she was started on Lasix 60 mg IV every 12 hours. Since then, she showed good improvement. Because at admission she was also complaining of mild pain when she was peeing, we decide to do a urine culture that showed ESBL Escherichia coli. So, we decided to start treating her with ertapenem. We have consulted Dr. Vo from infectious disease to help with managing this patient. The patient's white cell count was back to normal. The patient was not developing any fever. We have continued with doses of Lasix recommended by Cardiology. Another issue that we have seen is physical deconditioning, but the patient adamantly refused to go to rehab so she can request to have home health. I think the patient is stable and ready to be discharged. DISCHARGE PHYSICAL EXAMINATION: Vital Signs: Temperature 98.1 degrees, heart rate 77, respiratory rate 18, blood pressure 111/59, and O2 saturation 100% on 2 L nasal cannula. General: This is a chronically ill-looking 78-year-old female lying in bed, in no acute distress. HEENT: Head is normocephalic, atraumatic. Neck: No JVD noted. No carotid bruits. No lymphadenopathy. No thyromegaly. Cardiovascular: S1 and S2 heard. No murmurs, gallops, or rubs. Regular rate and rhythm. Respiratory: Minimal crackles in both pulmonary bases. The patient is not using any accessory muscles or having work of breathing. Abdomen: Soft, a little bit distended, but nontender to palpation. Bowel sounds present. No organomegaly. Extremities: Minimal swelling in both lower extremities. No clubbing or cyanosis noted. Neurological: The patient is alert and oriented x3. Moves 4 extremities. DISCHARGE DISPOSITION: Home with home health. The patient adamantly refused to go to rehab. LIST OF MEDICATIONS: 1. Carvedilol 3.125 mg 1 tablet p.o. b.i.d. 2. Spironolactone 25 mg 1 tablet p.o. daily. 3. Metformin 500 mg 1 tablet p.o. b.i.d. 4. Nateglinide 120 mg p.o. 3 times per day. 5. Atorvastatin 40 mg 1 tablet p.o. at bedtime. 6. Plavix 75 mg 1 tablet p.o. daily. 7. Gabapentin 100 mg p.o. at bedtime. 8. Digoxin 125 mcg oral daily. 9. Folic acid 1 mg p.o. daily. 10. Icar-C 1 tablet p.o. daily. 11. ProAir 1 inhalation twice daily as needed for shortness of breath. 12. Entresto 24/26 mg 1 tablet p.o. twice daily. 13. Lasix 80 mg 1 tablet p.o. b.i.d. FOLLOWUP: With her primary care physician in 1 week. TIME SPENT: The time discharging this patient was 35 minutes. cc: Mu Palma MD
== END 2018-06-16 18:51 | disposition home health service (06) | DRG 292 ==
LOC: DIRADM 13:28 → SUATTDRO 13:28 → 4N 14:09 → 3N 06-13 18:12
PROVIDERS: ATTEND Internal Medicine
CPT/HCPCS: 36569; 71010; 71020; 71045; 71046; 80048; 80053; 80162; 81001; 82550; 82948; 83036; 83735; 83880; 84100; 84484; 85025; 85027; 85610; 87077; 87088; 87186; 93005; 93010; 94640; 94761; 97162; 97165; 97530; A9270; J0696; J1335; J1940; J7050; XXXXX

== ENCOUNTER 2018-08-18 10:17 | Inpatient (IN) ==
[2018-08-18] MEDS ORDERED: LASIX IV ONE (11:36)
--- NOTE | 2018-08-18 11:54 | Diag Imaging Result Doc PS360 ---
EXAM: CHEST-2 VIEWS HISTORY: sob TECHNIQUE: Chest two views COMPARISON: 06/16/2018 FINDINGS: The lungs are well expanded. The heart is enlarged. The there is a left-sided pacemaker. Vessels are not distended. There are no infiltrates. No pleural effusions. Interval removal of the right-sided PICC line. IMPRESSION: Cardiomegaly Electronically signed by Willie Medrano 08/18/2018 11:52 AM
[2018-08-18 12:05] LABS: BASO# 0.03 X1000 (0.0-0.2); BASO% 0.6 % (0.0-0.8); EOS# 0.23 X1000 (0.0-0.7); EOS% 4.9 % (0.0-10.0); HEMATOCRIT 30.3 % (37.0-47.0); HEMOGLOBIN 9.4 g/dL (12.0-16.0); LYMPH# 0.63 X1000 (1.2-3.4); LYMPH% 13.4 % (20.5-51.1); MCH 28.7 PG (27-31); MCV 92.4 FL (81-99); MONO# 0.28 X1000 (0.11-0.59); MPV 11.8 FL (7.4-10.4); NEUT# 3.53 X1000 (1.4-6.5); NEUT% 75.1 % (42.2-75.2); PLT 187 X1000 (130-400); RBC 3.28 XMIL (4.2-5.4); RDW 16.3 % (11.5-14.5)
[2018-08-18 12:17] LABS: INR 1.12; PROTIME 15.3 Seconds (11.0-16.0)
[2018-08-18 12:18] LABS: PTT 33.3 Seconds (22.3-41.8)
[2018-08-18 13:00] LABS: ALB/GLOB RATIO 1.8; ALBUMIN 4.4 g/dL (3.5-5.0); CALCIUM 9.4 mg/dL (8.8-10.2); CREATININE 1.9 mg/dL (0.5-0.9); POTASSIUM 5.1 mmol/L (3.5-5.1); TOTAL BILIRUBIN 0.91 mg/dL (0.20-1.00); TOTAL PROTEIN 6.9 g/dL (6.3-8.3)
--- NOTE | 2018-08-18 14:45 | PROVIDER DOCUMENTATION ---
This chart was entered by Cierra Slater Scribe, acting as scribe for Meño Louis MD. HPI-Respiratory General - General Chief Complaint: Shortness of Breath Stated Complaint: SOB Time Seen by Provider: 08/18/18 11:33 Source: patient Allergies/Adverse Reactions: Patient Allergies Allergy/AdvReac Type Severity Reaction Status Date / Time clindamycin Allergy RASH Verified 01/04/18 06:40 egg Allergy HIVES Verified 01/03/18 19:50 Home Medications: Home Medication List Medication Instructions Recorded Confirmed Last Taken Type ATORVAstatin [Lipitor] 40 mg PO QHS 10/12/17 08/18/18 06/08/18 History Clopidogrel Bisulfate [Plavix] 75 mg PO DAILY 10/12/17 08/18/18 06/09/18 History Gabapentin [Neurontin] 100 mg PO QHS 10/12/17 08/18/18 06/08/18 History Metformin HCl 500 mg PO BID 10/12/17 08/18/18 06/09/18 History Nateglinide 120 mg PO TID 10/12/17 08/18/18 06/09/18 History Digoxin [Lanoxin] 125 microgm PO DAILY tablet 01/11/18 08/18/18 06/09/18 Rx Folic Acid 1 mg PO DAILY tablet 01/11/18 08/18/18 06/09/18 Rx Iron Carbonyl/Ascorbic Acid 1 each PO DAILY 02/10/18 08/18/18 06/09/18 History [Icar-C] Acetaminophen [Tylenol] 650 mg PO Q6H PRN PRN tablet 02/21/18 08/18/18 06/08/18 Rx Albuterol Sulfate [Proair 90 mcg IH BID PRN 06/09/18 08/18/18 05/10/18 History Respiclick] Sacubitril/Valsartan [Entresto 24 1 each PO BID 06/09/18 08/18/18 06/09/18 History mg-26 mg Tablet] Carvedilol [Coreg] 3.125 mg PO BID #60 tab 06/16/18 08/18/18 Unknown Rx Furosemide 80 mg PO BID #120 tab 06/16/18 08/18/18 Unknown Rx - History of Present Illness-Resp Nature of Presenting Problem: Patient is a 78 year old female who presents to the ED via EMS with shortness of breath that has been present for 3 days. Reports she was recently taken off of her Spironolactone. States she takes 80 mg of Lasix BID. Denies cough and fever. Quality of Pain: reports: tightness Severity in ED: reports: mild Onset/Duration: reports: 3 days ago Timing: reports: still present, getting worse Cough Quality/Degree: reports: no cough Current Respiratory Medication Therapy: Initiated see nurses note Associated Symptoms: reports: shortness of breath Similar Symptoms Previously?: Yes (present for 3 days) Recently seen or treated by another doctor?: No Review of Systems - Adult - REVIEW OF SYSTEMS - ADULT Constitutional: reports: no symptoms reported. denies: chills, fever, fatique Eyes: reports: no symptoms reported Ears, Nose, Mouth & Throat: reports: no symptoms reported Cardiovascular: reports: no symptoms reported. denies: chest pain, heart murmur, palpitations Respiratory: reports: see HPI, shortness of breath. denies: cough, wheezing Gastrointestinal: reports: no symptoms reported Genitourinary: reports: no symptoms reported Musculoskeletal: reports: no symptoms reported Integumentary: reports: no symptoms reported Neurological: reports: no symptoms reported Psychiatric: reports: no symptoms reported Endocrine: reports: no symptoms reported Hematologic/Lymphatic: reports: no symptoms reported Allergic/Immunologic: reports: no symptoms reported All Other Systems: Reviewed and Negative Past History - Adult - PAST MEDICAL HISTORY-ADULT Review of Records: reports: Nursing Assessment Review, Medications Reviewed, S ocial history reviewed & non-contributory. Major Childhood Illnesses: reports: denies history Cardiovascular: reports: A-Fib, CHF, HTN, hyperlipidemia, [place] Respiratory: reports: COPD Gastrointestinal: reports: denies history Obstetrical/Gynecological: reports: denies history Genitourinary: reports: kidney disease Musculoskeletal: reports: denies history Neurological: reports: denies history Psychiatric: reports: denies history Endocrine/Immune: reports: Diabetes Diabetes Type: Type 2 Other Conditions: reports: denies history - PRIOR SURGERIES/PROCEDURES Surgical/Procedure History: reports: reviewed, not pertinent, appendectomy, cholecystectomy, cardiac stent, tonsillectomy - IMMUNIZATION STATUS Childhood Immunizations: See Nurse Assessment Flu Vaccine: See Nurse Assessment - FAMILY HISTORY Family History: reviewed, not pertinent - SOCIAL HISTORY Smoking: denies Substance Use: denies Physical Exam-General - PHYSICAL EXAM-ADULT Initial Vital Signs Reviewed: Yes - CONSTITUTIONAL General Appearance: alert, no apparent distress. negative: lethargic, slow to respond - HEAD, EARS, NOSE, MOUTH & THROAT HENMT: moist mucous membranes, hearing deficit. negative: angioedema - RESPIRATORY Respiratory: chest non-tender, rales (bilateral bases). negative: rhonchi, wheezing - CARDIOVASCULAR Cardiovascular: normal peripheral pulses, irregularly irregular. negative: tachycardia, systolic murmur - GASTROINTESTINAL (ABDOMEN) Abdominal Exam: normal bowel sounds, non tender, soft. negative: guarding, rebound - MUSCULOSKELETAL Back Exam: no vertebral tenderness, other (sacral edema). negative: ecchymosis Extremity: non-tender, other (2 + pitting edema to bilateral lower extremities). negative: deformity, erythema - SKIN Integumentary: normal color, normal turgor, warm/dry. negative: diaphoresis, ecchymosis, erythema - NEUROLOGIC Neurologic: grossly normal. negative: aphasia, facial droop - PSYCHIATRIC Psych/Mental Status: normal mood/affect, oriented x 3. negative: paranoid, tearful Progress - PLAN OF CARE/RESULTS Progress/Plan/Lab Results: Vital Signs - 8 hr 08/18/18 10:26 Temperature 98.5 F Pulse Rate 72 Respiratory Rate 14 Blood Pressure 128/95 O2 Sat by Pulse Oximetry 98 Laboratory Results - last 24 hr 08/18/18 08/18/18 08/18/18 11:57 11:57 11:57 WBC 4.70 L RBC 3.28 L Hgb 9.4 L Hct 30.3 L MCV 92.4 MCH 28.7 MCHC 31.0 L RDW Std Deviation 16.3 H Plt Count 187 MPV 11.8 H Immature Gran % (Auto) 0.0 Neut % (Auto) 75.1 Lymph % (Auto) 13.4 L [place] % (Auto) 6.0 Eos % (Auto) 4.9 Baso % (Auto) 0.6 Immature Gran # (Auto) 0.00 Neut # (Auto) 3.53 Lymph # (Auto) 0.63 L [place] # (Auto) 0.28 Eos # (Auto) 0.23 Baso # (Auto) 0.03 PT INR PTT (Actin FS) Sodium 145 Potassium 5.1 Chloride 105 Carbon Dioxide 25 Anion Gap 15 BUN 66 H Creatinine 1.9 H Estimated GFR/1.73 m2 26 BUN/Creatinine Ratio 35 Glucose 166 H Calculated Osmolality 311 Calcium 9.4 Total Bilirubin 0.91 AST 9 L ALT 7 L Alkaline Phosphatase 47 Creatine Kinase 24 Troponin T [id number] Pept 03566 H Total Protein 6.9 Albumin 4.4 Globulin 2.5 Albumin/Globulin Ratio 1.8 08/18/18 08/18/18 11:57 11:57 WBC RBC Hgb Hct MCV MCH MCHC RDW Std Deviation Plt Count MPV Immature Gran % (Auto) Neut % (Auto) Lymph % (Auto) [place] % (Auto) Eos % (Auto) Baso % (Auto) Immature Gran # (Auto) Neut # (Auto) Lymph # (Auto) [place] # (Auto) Eos # (Auto) Baso # (Auto) PT 15.3 INR 1.12 PTT (Actin FS) 33.3 Sodium Potassium Chloride Carbon Dioxide Anion Gap BUN Creatinine Estimated GFR/1.73 m2 BUN/Creatinine Ratio Glucose Calculated Osmolality Calcium Total Bilirubin AST ALT Alkaline Phosphatase Creatine Kinase Troponin T 0.012 [id number]-[id number] Pept Total Protein Albumin Globulin Albumin/Globulin Ratio Orders Category Date Time Status Cardiac Monitoring DIRECTED Care 08/18/18 11:08 Active Oxygen Therapy- ED Nursing DIRECTED Care 08/18/18 11:08 Active Heart Healthy Diet Diet 08/18/18 13:08 Active CHEST-2 VIEWS [RAD] Stat Exams 08/18/18 11:08 Completed CBC WITH ELECTRONIC DIFF [HEME] Stat Lab 08/18/18 11:57 Completed CK PROFILE [SP CHEM] Stat Lab 08/18/18 11:57 Completed COMPREHENSIVE METABOLIC PANEL [CHEM] Stat Lab 08/18/18 11:57 Completed PRO B-NATRIURETIC PEPTIDE Stat Lab 08/18/18 11:57 Completed PROTIME WITH INR [COAG] Stat Lab 08/18/18 11:57 Completed PTT [COAG] Stat Lab 08/18/18 11:57 Completed TROPONIN T Stat Lab 08/18/18 11:57 Completed Furosemide [Lasix] Med 08/18/18 11:36 Discontinued 80 mg IV NOW ONE CP/SOB/Palp >45 yrs of Age Stat Oth 08/18/18 11:08 Ordered Result Diagrams: 08/18/18 11:57 08/18/18 11:57 - EKG 1 Time of EKG reading by physician:: 10:26 EKG Read and Signed by:: Meño Louis EKG Interpretation (*Must complete 3 of following elements*): Abnormal Rate: 65 Rhythm: atrial fibrillation Comments: inferior infarct, age undetermined; anterolateral infarct, age und etermined - XRAY 1 XRAY Study: Chest Impression: See EMR Report (EXAM: CHEST-2 VIEWS HISTORY: sob TECHNIQUE: Chest two views COMPARISON: 06/16/2018 FINDINGS: The lungs are well expanded. The heart is enlarged. The there is a left-sided pacemaker. Vessels are not distended. There are no infiltrates. No pleural effusions. Interval removal of the right-sided PICC line. IMPRESSION: Cardiomegaly Electronica lly signed by Willie Medrano 08/18/2018 11:52 AM 08/18/18 1152 Interpreting Physician: Willie Medrano MD Dictated Date/Time: 08/18/18 1151 cc: Meño Louis MD; Jaqueline Louis MD) - CONSULTS/PCP/HOSPITALIST Notification #1 *Consult/PCP/Hospitalist*: CLAUDIO Dubon for Hospitalist Time Discussed: 14:31 (Dr. Barron accepted admit ) Reason/Comments: Dr. Louis consulted with Jagdish about patient. Consult Disposition: Will see in ED, Admit Departure - Departure Date of Disposition Decision: 08/18/18 Time of Disposition Decision: 14:35 DIAGNOSIS: CHF (congestive heart failure), Fluid overload, Acute renal failure Disposition: ADMITTED INPATIENT 09 Certified Medical Emergency: Emergent Condition: Good Referrals and Follow-Ups: Jaqueline Louis MD [Primary Care Provider] - - Critical Care Note This patient required my direct & personal management of CC.: No Attestation - Physician/ ERIC Attestation The physician spent face to face time with patient:: Yes Advanced Practice Provider documentation review:: Supervising physician onsite and consulted in the evaluation and care of this patient. The physician did have a face to face encounter with the patient. This chart was documented by the indicated scribe, (Cierra Slater Scribe) and accurately reflects the services I performed and decisions made by me, Meño Louis MD, as attested by the provider's signature.
[2018-08-18] MEDS ORDERED: ENTRESTO 24 MG-26 MG TABLET PO ONE (15:29)
[2018-08-18] MEDS ORDERED: PLAVIX PO ONE (15:30)
[2018-08-18] MEDS ORDERED: LIPITOR PO ONE (15:30)
[2018-08-18] MEDS ORDERED: COREG PO ONE (15:31)
--- NOTE | 2018-08-18 15:52 | EKG Report ---
Test Performed on : 08/18/2018 10:26:00 AM Test Reason : ED. NO order in [place] Blood Pressure : / mmHG Vent. Rate : 065 BPM Atrial Rate : 063 BPM P-R Int : 000 ms QRS Dur : 094 ms QT Int : 352 ms P-R-T Axes : 000 -29 -05 degrees QTc Int : 366 ms Atrial fibrillation. Inferior infarct (cited on or before 11-FEB-2018) Anterolateral infarct (cited on or before 12-OCT-2017) Abnormal ECG When compared with ECG of 09-JUN-2018 15:56, No significant change was found Unconfirmed Result
[2018-08-18] MEDS ORDERED: VENTOLIN HFA INH PRN (16:38)
[2018-08-18] MEDS ORDERED: DUONEB (A & A) INH PRN (16:41)
[2018-08-18 16:53] LABS: ALLEN TEST NO; BE 1.1 mmoll (-3.0-3.0); BLOOD TYPE ARTERIAL; HCO3-(ACT) 25.7 mmoll (20.0-26.0); METHB 1.1 % (0.0-1.5); O2(CT) 13.2 mL/dL (15.0-23.0); O2HB 94.5 % (95.0-99.0); PCO2(98.6) 36 mmHg (35-45); PO2(98.6) 73 mmHg (60-100); SAMPLE BLOOD; SAO2 97.3 % (95.0-100.0); THB 9.9 g/dL (11.5-17.4); pH(98.6) 7.45 (7.35-7.45)
[2018-08-18 16:55] LABS: MODALITY CANNULA
--- NOTE | 2018-08-18 17:37 | HISTORY AND PHYSICAL ---
CHIEF COMPLAINT: Dyspnea. HISTORY OF PRESENT ILLNESS: Mrs. Saeed is a 78-year-old female known to our service, most recently discharged in June of this year for ischemic cardiomyopathy and acute on chronic systolic heart failure. She has a severely impaired left ventricle with an EF of 15% to 20%. She has also had worsening renal failure over the past two to three months. She has seen Dr. Doherty as well. She comes in today with two to three days worsening dyspnea. Denies any fever or mucopurulent cough. She has no abdominal pain, nausea, or vomiting. She reports only modest increase in lower extremity edema but has significant orthopnea and progressively worsening dyspnea on exertion. She denies any chest pain. She reports abstaining from salt products and compliance with her medicines. When she got to the ER today labs and diagnostics were done. She was noted to have a proBNP of 21,564 which seems to be fairly close to her average. Chest x-ray interestingly did not show any pulmonary edema. It does show cardiomegaly. She is also anemic, which is chronic. Her EKG shows atrial fibrillation with a controlled rate. Because of the above, she is going to be admitted for acute on chronic heart failure. PAST MEDICAL HISTORY: 1. Ischemic cardiomyopathy. 2. Systolic heart failure with EF of 20%. 3. Chronic ESBL positive E coli UTI. 4. Type 2 diabetes. 5. Rate controlled atrial fibrillation. 6. Hypertension. 7. Known CAD with status post [place] with LAD occlusion in 2017. PAST SURGICAL HISTORY: AICD, heart catheterization with coronary stents, cholecystectomy, appendectomy, basal cell carcinoma excision from the nose, C section x2, right knee surgery. FAMILY HISTORY: Significant for diabetes and hypertension. SOCIAL HISTORY: No tobacco, alcohol, or drug use. She is . Her sister is at the bedside. ALLERGIES: Clindamycin and eggs. HOME MEDICATIONS: Entresto / one p.o. b.i.d., Icar C one daily, Lipitor 40 mg at bedtime, metformin 500 mg p.o. b.i.d., nateglinide 120 mg p.o. t.i.d., Neurontin 100 mg p.o. at bedtime, Plavix 75 mg daily, Albuterol Respiclick 90 mcg b.i.d., Coreg 3.125 mg p.o. b.i.d., folic acid 1 mg p.o. daily, Lasix 80 mg p.o. b.i.d., Lanoxin 125 mcg daily, Tylenol 650 mg as needed every six hours for fever or pain. REVIEW OF SYSTEMS: A 14-point review of systems was obtained and found to be negative with the exception of the HPI. PHYSICAL EXAMINATION: VITAL SIGNS: Blood pressure 150/81; heart rate is 73; respiratory rate 42; 02 saturation 93% on nasal cannula; temperature 98.5. GENERAL: Morbidly obese female lying in the hospital bed in no acute distress. NEUROLOGICAL: Awake, alert, and oriented. Follows commands. No focal deficits. HEENT: Head is atraumatic and normocephalic. Her pupils are equal, round and reactive to light. Oral mucosa is moist. NECK: Supple. CHEST: Decreased at the bases with fine crackles bilaterally. CARDIOVASCULAR: Irregular rate and rhythm. S1 and S2 is noted. GASTROINTESTINAL: Soft. Nondistended. Nontender. Bowel sounds are active. EXTREMITIES: 1+ edema bilaterally. Pulses palpable but diminished. DIAGNOSTIC DATA: EKG shows atrial fibrillation, rate controlled. Chest x-ray shows cardiomegaly. No pulmonary edema. Abdominal ultrasound done yesterday shows ventral hernia with some fluid in the hernia sac indicating possible ascites. WBC 4.7, hemoglobin 9.4, hematocrit 30.3, platelet count 187,000. INR 1.12. Sodium 145, potassium 5.1, chloride 105, C02 25, anion gap 15, BUN 66, creatinine 1.9, glucose 166, calcium 9.4. LFTs negative. Troponin 0.012. proBNP 21,564. Albumin 4.4. Digoxin level 1.4. ASSESSMENT AND PLAN: 1. Dyspnea: Chest x-ray is negative for pulmonary edema but she is clearly dyspneic. Her creatinine and proBNP are at about her baseline and she denies any chest pain. Will check a D dimer, sed rate, and CRP. She may need a CT to evaluate her lungs or a VQ scan for the possibility of pulmonary embolism. We will check arterial blood gas as well. Continue breathing treatments and aggressive pulmonary toilet. Her enzymes will be trended. If she has any worsening would consider Cardiology or Pulmonary consultation. Possibly Renal as well. 2. Acute on chronic systolic heart failure: Continue diuresis intravenously. Follow intake and output and daily weights. Continue Entresto. 3. Chronic kidney disease: Her creatinine appears to be at about baseline. Will follow her urine output daily, creatinine, and BUN. If she goes above baseline will consult Dr. Doherty, but for now will hold. 4. Diabetes mellitus: Add patterned sugar sliding scale insulin. 5. Coronary artery disease: The patient denies any chest pain. We are trending enzymes, checking D dimer, and possibly CT without contrast and/or VQ scan. 6. Chronic atrial fibrillation: Rate is controlled. We are trying to evaluate why she is not on long-term anticoagulation. Will continue her home medications and consider Cardiology consultation. Again, rate controlled. Further recommendations to follow. Dictated by CLAUDIO Herrera for Shaina Barron MD cc: CLAUDIO Herrera MD I performed a face to face encounter on the patient. I reviewed all labs and imaging on the patient. I agree with the assessment and plan as dictated. HIGINIO
[2018-08-18 17:53] LABS: URINE SOURCE CLEAN CATCH
[2018-08-18 17:55] LABS: UR EPITHELIAL CELLS <10 /HPF (<10); URINE BACTERIA 4+ /HPF; URINE RBC <10 /HPF (<10); URINE WBC TNTC /HPF (<10)
[2018-08-18 17:56] LABS: BILIRUBIN URINE NEGATIVE (NEGATIVE); BLOOD URINE TRACE (NEGATIVE); COLOR YELLOW; GLUCOSE URINE NEGATIVE (NEGATIVE); KETONE URINE NEGATIVE (NEGATIVE); LEUKOCYTES URINE LARGE (NEGATIVE); NITRITE URINE NEGATIVE (NEGATIVE); PROTEIN URINE TRACE mg/dL (NEGATIVE); SP GRAVITY URINE 1.005; TURBIDITY URINE HAZY (CLEAR); UROBILINOGEN URINE NORMAL (NORMAL)
--- NOTE | 2018-08-18 18:52 | Diag Imaging Result Doc PS360 ---
EXAM: CT THORAX W/O CONTRAST - 08/18/2018 HISTORY: worsening dyspnea TECHNIQUE: CT thorax without contrast COMPARISON: 08/18/2018 chest radiographs FINDINGS: There is cardiomegaly. There is calcified mitral valve annulus. There are hazy bilateral pulmonary opacities with some patchiness. There is mild dependent/basilar subsegmental atelectasis. There is a tiny right pleural effusion. There is no pneumothorax identified. There is mild mediastinal adenopathy. Included sections of the upper abdomen show somewhat prominent liver size. There is no discrete focal lesion identified in the visualized liver. IMPRESSION: Cardiomegaly. Hazy bilateral pulmonary opacities with some patchiness. These may relate to mild pulmonary edema or pneumonitis. Tiny right pleural effusion. Mild mediastinal adenopathy. Hepatomegaly noted. This exam was performed using automated exposure control, adjustment of mA or kV according to patient size, and/or use of iterative reconstruction technique. Electronically signed by Nicola Hopkins 08/18/2018 6:50 PM
[2018-08-18] MEDS: DUONEB (A & A) INH SCH (20:10)
[2018-08-18] MEDS: ROCEPHIN 1 GM in NS 50 ML IV SCH (21:39)
[2018-08-18] MEDS: LIPITOR PO SCH (21:40)
[2018-08-18] MEDS: COREG PO SCH (21:41)
[2018-08-18] MEDS: NEURONTIN PO SCH (21:41)
[2018-08-18] MEDS: HUMULIN R SUBQ SCH (21:41)
[2018-08-19] MEDS: DUONEB (A & A) INH SCH ×7 (00:10→23:55)
[2018-08-19] MEDS: HUMULIN R SUBQ SCH ×4 (07:04→22:30)
[2018-08-19 08:15] LABS: HEMATOCRIT 29.3 % (37.0-47.0); MCH 28.7 PG (27-31); MCHC 30.7 g/dL (33-37); MCV 93.3 FL (81-99); MPV 12.2 FL (7.4-10.4); RBC 3.14 XMIL (4.2-5.4); RDW 16.6 % (11.5-14.5); WBC 3.99 X1000 (4.8-10.8)
[2018-08-19 09:02] LABS: CALCIUM 9.6 mg/dL (8.8-10.2); CREATININE 1.9 mg/dL (0.5-0.9)
[2018-08-19] MEDS: PLAVIX PO SCH (09:45)
[2018-08-19] MEDS: LASIX IV SCH ×2 (09:45→20:59)
[2018-08-19] MEDS: TYLENOL PO PRN ×2 (09:45→20:59)
[2018-08-19] MEDS: COREG PO SCH ×2 (09:45→20:59)
[2018-08-19] MEDS: FOLIC ACID PO SCH (09:45)
[2018-08-19] MEDS: LANOXIN PO SCH (09:45)
[2018-08-19] MEDS: ICAR-C PO SCH (09:45)
[2018-08-19] MEDS: ZYVOX 600 MG/D5W 600 MG/300 ML IVPB IV SCH ×2 (09:46→22:30)
--- NOTE | 2018-08-19 15:04 | CARDIOLOGY CONSULTATION ---
DATE: 08/19/2018 REASON FOR CONSULTATION: Cardiology was consulted for congestive heart failure. HISTORY OF PRESENT ILLNESS: Ms. Saeed is a 78-year-old lady with known history of ischemic cardiomyopathy, myocardial infarction, stent placement. In the past had occlusion of the LAD in 2017 and has AICD and comes with complaints of increasing shortness of breath over the last 3 days. She was recently admitted and discharged. She was given Lasix and she has improved symptomatically. She also complains of having had some cough. Denies chest pain suggestive of angina. There is no palpitations or syncope. She had an elevated proBNP of 21,564. In the recent past, she was on Aldactone which worsened her kidney function and that was discontinued. She has been taking p.o. medicines. As far as anticoagulation therapy is concerned, she has chronic atrial fibrillation, and she is not on Eliquis at the moment. In the past she was on it, however she says at discharge she was placed only on Plavix and that is why she stopped taking her Eliquis. Regardless, there are no recent bleeding issues. REVIEW OF SYSTEM: General: A 14-point review of systems was done. GI system: There is no history of nausea, vomiting, diarrhea. There is no history of hematemesis or melena. Central nervous system: No focal weakness to suggest a CVA or TIA. PAST MEDICAL HISTORY: 1. Ischemic cardiomyopathy, 2. Systolic heart failure. Ejection fraction of 20%. 3. Diabetes. 4. Coronary artery disease, stent placement in the past with LAD occlusion. 5. AICD placement. 6. History of urinary tract infection. 7. Rate controlled atrial fibrillation. 8. Hypertension. 9. Chronic renal insufficiency. 10. Appendectomy. 11. Right knee surgery. 12. Basal cell carcinoma excision of nose. HOME MEDICATION: 1. Entresto 24/ one tablet twice daily. 2. Icar C. 3. Lipitor. 4. Metformin 500 b.i.d. 5. Nateglinide 120 t.i.d. 6. Neurontin 100. 7. Plavix 75. 8. Coreg 3.125 b.i.d. 9. Folic acid. 10. Lasix 80 mg p.o. b.i.d. 11. Digoxin 125 mcg daily. PHYSICAL EXAMINATION: Vital Signs: Blood pressure was 150/80. Cardiovascular System: Normal jugular venous pressure. First and second heart sounds were heard. There was a soft murmur. Respiratory System: Bibasilar scattered inspiratory crepitations. Abdomen: Obese, soft, nontender. There was no guarding or rigidity. Bowel sounds were heard. Central nervous system: Alert and was moving all 4 extremities. Examination of extremities: Revealed mild pedal edema. LABS: WBC 4.7, hemoglobin 9.4, hematocrit 30, platelet count 187. INR 1.1. Sodium 145, potassium 5. BUN 66, creatinine 1.9. Digoxin level 1.4. ProBNP 99402. Troponin negative. ASSESSMENT AND PLAN: 1. Ms. Evangelista Saeed is a 78-year-old lady with history of ischemic cardiomyopathy, systolic heart failure, severe LV dysfunction, ejection fraction of 20%, chronic atrial fibrillation, history of hypertension, renal insufficiency comes with complaints of increasing shortness of breath. She was started on Lasix with which she has symptomatically improved. She has had kidney function issues as well. Nephrology has been consulted. 2. For her heart failure, continue with her home medications of beta-blockers and Entresto. 3. She has chronic kidney disease as well, which is stable at the present time. In 2018, her creatinine was 1.1. Recent worsening because of Aldactone which has been discontinued. 4. Chronic atrial fibrillation. Rate is under control. Given her renal insufficiency, I will put her on anticoagulation Eliquis 2.5 mg twice daily. 5. Chest CT revealed hazy pulmonary opacities, suggestion of pulmonary edema. Cannot rule out pneumonitis. She has been started on antibiotics with ceftriaxone. I have not made any other changes. Thank you for the consult. cc: Abdulaziz Sandy MD
--- NOTE | 2018-08-19 20:46 | PROGRESS NOTE ---
DATE: 08/19/2018 SUBJECTIVE: The patient is resting comfortably in bed. She does complain of shortness of breath. She denies having any chest pain, headache or dizziness. OBJECTIVE: Vital Signs: Temperature 97.4 degrees, blood pressure 132/56, heart rate 64, respirations 16, O2 saturation 98% on 3 L nasal cannula. General: This is a morbidly obese female lying in bed in no acute distress. Heart: S1, S2 normal. Lungs: Diminished breath sounds at the bases. Equal air entry bilaterally. Abdomen: Positive bowel sounds. Soft, obese, nontender, nondistended. Extremities: 1+ edema. Neurologic: The patient is alert and oriented x3. LABS: White blood cell count 3.9, hemoglobin 9, hematocrit 29, platelets 187,000. Sodium 138, potassium 4, chloride 99, CO2 25, BUN 58, creatinine 1.9, glucose 143. ASSESSMENT AND PLAN: 1. Chronic hypoxemic respiratory failure. The patient appears to have pneumonitis on the CT. Continue with bronchodilator therapy and antibiotics. 2. Pneumonitis. Continue with antibiotics and bronchodilator therapy. 3. Acute on chronic systolic congestive heart failure exacerbation. Continue with diuretic therapy and the current medications as directed by the raiser helper. 4. Ischemic cardiomyopathy status post automated implantable cardioverter defibrillator. Aware. 5. Acute kidney injury on chronic kidney disease. Will order urine studies. 6. Diabetes mellitus type 2. Continue with sliding scale insulin. Will discontinue the metformin. 7. Atrial fibrillation. The patient is rate controlled. Continue on the current treatment regimen. cc: Shaina Barron MD [facility]
[2018-08-19] MEDS: ELIQUIS PO SCH (20:59)
[2018-08-19] MEDS: LIPITOR PO SCH (21:00)
[2018-08-19] MEDS: NEURONTIN PO SCH (21:00)
[2018-08-19] MEDS: ROCEPHIN 1 GM in NS 50 ML IV SCH (21:00)
--- NOTE | 2018-08-19 21:40 | PULMONOLOGY CONSULTATION ---
DATE: 08/19/2018 REQUESTING PHYSICIAN: Dr. Barron. REASON FOR CONSULTATION: Respiratory failure with pneumonitis. HISTORY OF PRESENT ILLNESS: Ms. Saeed is a 78-year-old white female, never-smoker, with morbid obesity, who has had chronic hypoxemic respiratory failure for the last 2 years. The patient reports following her heart attack in 2017 she has required continuous oxygen. The patient has severe ischemic cardiomyopathy with an ejection fraction of 15% to 20%. She is followed by home health. She had a low oxygen saturation along with increased lower extremity edema and increasing shortness of breath, and came to the emergency room. Lactate was slightly elevated at 2.5 on an arterial blood gas. Creatinine is slightly elevated over her baseline. She has received diuresis with some marginal improvement, but the amounts are not well documented. PAST MEDICAL HISTORY: Problem list: 1. Ischemic cardiomyopathy with an ejection fraction of 20%. 2. Coronary artery disease with LAD occlusion. 3. AICD placement. 4. Chronic hypoxemic respiratory failure. 5. History of ESBL E. coli urinary tract infection. 6. Atrial fibrillation. 7. Hypertension. 8. Appendectomy. 9. Status post right knee surgery. 10. History of basal cell carcinoma requiring excision from her nose. FAMILY HISTORY: Noncontributory to current presentation. SOCIAL HISTORY: The patient is a nondrinker. She is a never-smoker. PHYSICAL EXAMINATION: Physical exam reveals an obese white female with a BMI of 35. Blood pressure 132/56, heart rate 64, respiratory rate 16, oxygen saturation 98%. HEENT: Pupils are equal and reactive. Oropharynx is clear. Neck is supple. Chest reveals crackles in both lung bases. Cardiac exam: S1, S2. Abdomen is obese and soft. Extremities reveal 1+ peripheral edema. DIAGNOSTIC DATA: CT scan of the thorax reveals bilateral infiltrates consistent with pulmonary edema. She has cardiomegaly and a tiny right-sided pleural effusion. She has nonspecific mediastinal adenopathy. LABORATORY DATA: Sodium 138, potassium 4.0, chloride 99, bicarbonate 25, BUN 58, creatinine 1.9. White blood count 3.99, hemoglobin 9.0, platelet count 187,000. IMPRESSION: A 78-year-old with morbid obesity, chronic hypoxemic respiratory failure, lactic acidosis, ischemic cardiomyopathy and pulmonary edema, with small pleural effusion. The CT scan is most consistent with pulmonary edema, given the overall clinical picture. The patient does have oxygen desaturation at night. She is a candidate for sleep apnea. I would like to give her a trial of bilevel positive airway pressure overnight to see if it can be tolerated. If so, an outpatient sleep study would be recommended; however, she was reluctant to try the bilevel positive airway pressure and it took a considerable amount of persuasion. I suspect that she will not be willing to try bilevel positive airway pressure more than once. RECOMMENDATIONS: 1. Management for heart failure as recommended by Cardiology. 2. Continue oxygen during the daytime for hypoxemic respiratory failure. 3. Recommend trial of nocturnal BiPAP as outlined above. cc: Rashel Davila MD
[2018-08-20] MEDS: DUONEB (A & A) INH SCH ×6 (03:55→23:48)
[2018-08-20 05:00] LABS: ALLEN TEST YES; BE 1.5 mmoll (-3.0-3.0); BLOOD TYPE ARTERIAL; METHB 1.1 % (0.0-1.5); O2(CT) 16.7 mL/dL (15.0-23.0); O2HB 94.8 % (95.0-99.0); PCO2(98.6) 49 mmHg (35-45); PO2(98.6) 88 mmHg (60-100); SAMPLE BLOOD; SAO2 97.8 % (95.0-100.0); THB 12.5 g/dL (11.5-17.4); pH(98.6) 7.36 (7.35-7.45)
[2018-08-20 05:02] LABS: MODALITY BI PAP
[2018-08-20] MEDS: HUMULIN R SUBQ SCH ×4 (06:36→20:42)
[2018-08-20 07:54] LABS: HEMATOCRIT 30.8 % (37.0-47.0); HEMOGLOBIN 9.5 g/dL (12.0-16.0); MCH 29.5 PG (27-31); MCHC 30.8 g/dL (33-37); MCV 95.7 FL (81-99); MPV 11.8 FL (7.4-10.4); RBC 3.22 XMIL (4.2-5.4); RDW 16.8 % (11.5-14.5); WBC 4.61 X1000 (4.8-10.8)
[2018-08-20 08:14] LABS: CALCIUM 9.5 mg/dL (8.8-10.2); CREATININE 2.1 mg/dL (0.5-0.9); POTASSIUM 4.4 mmol/L (3.5-5.1)
[2018-08-20] MEDS ORDERED: ASPIRIN EC PO SCH (09:00)
[2018-08-20] MEDS: PLAVIX PO SCH (09:29)
[2018-08-20] MEDS: LANOXIN PO SCH (09:29)
[2018-08-20] MEDS: ICAR-C PO SCH (09:30)
[2018-08-20] MEDS: ZYVOX 600 MG/D5W 600 MG/300 ML IVPB IV SCH (09:30)
[2018-08-20] MEDS: COREG PO SCH ×2 (09:30→20:37)
[2018-08-20] MEDS: ELIQUIS PO SCH ×2 (09:30→20:40)
[2018-08-20] MEDS: FOLIC ACID PO SCH (09:30)
[2018-08-20] MEDS: LASIX IV SCH ×2 (09:30→20:38)
[2018-08-20] MEDS: COLACE PO SCH ×2 (13:58→20:42)
[2018-08-20] MEDS: MIRALAX PO SCH (13:58)
[2018-08-20] MEDS: INVANZ 1 GM/NS 1 GM/50 ML IVPB IV SCH (14:38)
--- NOTE | 2018-08-20 15:47 | NEPHROLOGY CONSULTATION ---
DATE: 08/20/2018 REASON FOR CONSULTATION: Chronic kidney disease. HISTORY OF PRESENT ILLNESS: Ms. Saeed is a 78-year-old white female. She has been seen with us in the office on 1 occasion within the last 2 weeks. She was referred because of rising BUN and creatinine. Her creatinine has been between 1.9 and 2.4 over the last 1 month. Previous baseline 1.3. In the interim, she has added Entresto because of her severe LV dysfunction. She was admitted to the hospital over the last 24 hours with worsening shortness of breath. This is typical of her previous admissions for heart failure so she presented to the emergency room. She had elevated ProBNP but really no pulmonary edema on chest x-ray. She was admitted to the hospital and treated with her routine home medications except that her Entresto has been withheld. She has also been given ertapenem for possible ESBL urinary tract infection. She is currently receiving furosemide 40 mg IV q.12 hours. This morning she is sitting up. She states she feels better than she did last night. She is eating with a good appetite. No nausea, vomiting etc. No chest pain. PAST MEDICAL HISTORY: As above. LVEF 15 to 20 percent. She also has diabetes, history of atrial fibrillation, hypertension, coronary disease, etc. HOME MEDICATIONS: Include metformin, nateglinide, atorvastatin, clopidogrel, gabapentin, digoxin, folate, iron, acetaminophen, albuterol, Entresto, carvedilol, furosemide. ALLERGIES: Clindamycin. SOCIAL HISTORY: No alcohol or tobacco. She is . FAMILY HISTORY: Otherwise noncontributory. REVIEW OF SYSTEMS: Otherwise non contributory. PHYSICAL EXAMINATION: No acute distress.Skin: Warm and dry. Conjunctivae are pink. Neck: Neck veins are not visible in the erect position. Heart: Regular without gallops or murmurs. Lungs: Have equal breath sounds without crackles or wheezes. Abdomen: Soft, nontender. Bowel sounds are present. Extremities: Have no 1+ edema. No clubbing or cyanosis. Neurologic: Grossly nonfocal. IMPRESSION: Chronic kidney disease with recent worsening of her baseline. I expect that this is related to use of Entresto. This medication has been withheld today. From my perspective, though it is impacting her numbers negatively, if it is helping her cardiac status then is worth continuation. She does not have significant hyperkalemia or metabolic acidosis associated with it. I will discuss this with Dr. Childers at his convenience. cc: Abhi Doherty MD
--- NOTE | 2018-08-20 17:06 | ECHO REPORT ---
ORDER DATE: 08/19/2018 INDICATION: CHF. FINDINGS: 1. The right atrium is mildly enlarged at 4.2 cm. 2. There is moderate tricuspid regurgitation with an RV systolic pressure of 88 suggesting pulmonary hypertension. 3. Normal RV size and systolic function on difficult views of the right ventricle. Linear echodensity consistent with device leads seen in the right heart chambers. 4. Moderate pulmonic insufficiency. 5. Severe left atrial enlargement with a volume index of 54. 6. No mitral valve prolapse. Moderate mitral regurgitation. No evidence of mitral stenosis. 7. Left ventricle was dilated with an end-diastolic dimension of 6.1. Normal wall thicknesses with a posterior and interventricular septal wall thickness of 0.9 cm each. Severe reduction in LV systolic function with an estimated EF of 15%. Echo contrast was used on this study, does not demonstrate any evidence of left ventricular thrombus. There is a dyskinetic apex with severe hypokinesis elsewhere. 8. Aortic valve opens well. It is trileaflet. Mild insufficiency. No stenosis. 9. Aorta is dilated in the ascending portion with a dimension of 3.9 cm. 10. No pericardial effusion seen. cc: MD Shaina Dunaway MD
[2018-08-20 18:17] LABS: URINE SOURCE CLEAN CATCH
[2018-08-20] MEDS: BIDIL PO SCH (18:29)
[2018-08-20 18:41] LABS: BILIRUBIN URINE NEGATIVE (NEGATIVE); BLOOD URINE NEGATIVE (NEGATIVE); COLOR YELLOW; GLUCOSE URINE NEGATIVE (NEGATIVE); KETONE URINE NEGATIVE (NEGATIVE); LEUKOCYTES URINE NEGATIVE (NEGATIVE); NITRITE URINE NEGATIVE (NEGATIVE); PROTEIN URINE NEGATIVE (NEGATIVE); SP GRAVITY URINE 1.005; TURBIDITY URINE CLEAR (CLEAR); UROBILINOGEN URINE NORMAL (NORMAL)
[2018-08-20 18:42] LABS: UR EPITHELIAL CELLS <10 /HPF (<10); URINE BACTERIA NEGATIVE /HPF; URINE RBC <10 /HPF (<10); URINE WBC <10 /HPF (<10)
[2018-08-20 18:54] LABS: UR PROT RANDOM 12.1 mg/dL
--- NOTE | 2018-08-20 18:55 | PROGRESS NOTE ---
DATE: 08/20/2018 SUBJECTIVE: The patient is resting comfortably in bed. She states that she feels about the same. She reports that she has not had a bowel movement yet. OBJECTIVE: Vital Signs: Temperature 97.8 degrees, blood pressure 117/70, heart rate 67, respirations 19, O2 saturation 100% on 4 L nasal cannula. General: This is an elderly female lying in bed in no acute distress. Head: Normocephalic atraumatic. Heart: S1, S2 normal. Lungs: Equal air entry bilaterally. Diminished breath sounds at the bases. Abdomen: Positive bowel sounds. Soft, nontender, nondistended. Extremities: With 1+ edema. Neurologic: The patient is alert and oriented x4. LABS: White blood cell count 4.6, hemoglobin 9.5 hematocrit 30, platelets 185. Sodium 137, potassium 4.4, chloride 97. CO2 is 27, BUN 58, creatinine 2.1, glucose 150. ASSESSMENT AND PLAN: 1. Chronic hypoxemic respiratory failure. Continue with supplemental oxygen during the day and BIPAP at night as recommended by . 2. Acute on chronic systolic congestive heart failure exacerbation. Management as per the plating engineer. 3. Acute kidney injury on chronic kidney disease. Monitor closely while on diuretic therapy. 4. Ischemic cardiomyopathy status post automatic implantable cardioverter- defibrillator. Aware. 5. Diabetes mellitus type 2. Continue on sliding scale insulin. 6. Atrial fibrillation. Continue on Coreg and Eliquis. 7. UTI secondary to ESBL E.coli. Will switch to Invanz. 8. Constipation. Will start the patient on MiraLAX and Colace. 9. Disposition. Will consult Physical Therapy. cc: Shaina Barron MD [facility]
[2018-08-20 18:59] LABS: UR CREATININE 53.9 mg/dL (11-20); UR PROTEIN 10.6 mg/dL
[2018-08-20 19:05] LABS: CREATININE 2.1 mg/dL (0.7-1.2)
--- NOTE | 2018-08-20 19:09 | CARDIOLOGY PROGRESS NOTE ---
DATE: 08/20/2018 SUBJECTIVE: Ms. Saeed reports she feels a little bit better since admission. PHYSICAL EXAMINATION: Vital Signs: She is afebrile. Heart rate is anywhere from the 50s to the 70s predominantly. Her blood pressure is 119/64. Her I's and O's are difficult to track as she has multiple voids not measured. General: She is in no acute distress. Cardiovascular: She sounds to be in a regular rate and rhythm. She has no murmurs. She has no S3. She has minimal if any lower extremity edema. Chest: Clear bilaterally. She has no increased work of breathing. Abdomen: Soft, nontender, nondistended. She has no obvious organomegaly. PERTINENT DATA: She has a white count of 4.6 her hematocrit is 30. Her platelet count is 185. Her sodium is 137, potassium 4.4, BUN 58, creatinine is 2.1. ASSESSMENT: Ms. Saeed is a 78-year-old female, with a history of ischemic cardiomyopathy. PLAN: I have reviewed her records. It seems like she was undergoing some sort of GI evaluation back in January, but continues on aspirin and Plavix. Her Eliquis was re-initiated yesterday and I will increase to 5 mg b.i.d. based on her age, weight and renal function. I will discontinue the aspirin and continue on Plavix and Eliquis alone. Her Aldactone and Entresto have been discontinued gradually over the last several days it seems like based on renal function. I will initiate her on a low dose of BiDil at 1/2 tablet t.i.d. as an initiation of therapy. Hopefully, we can increase this in the next few days. We will continue on the IV Lasix. Recheck laboratories in the morning. cc: Shalom Childers MD
--- NOTE | 2018-08-20 20:05 | PULMONOLOGY PROGRESS NOTE ---
DATE: 08/20/2018 SUBJECTIVE: The patient is awake, alert, and conversant. She reports she wore the BiPAP last evening without difficulty for approximately 4 hours. I am having difficulty seeing that documentation. OBJECTIVE: Vital Signs: Blood pressure 110/64, heart rate 56, respiratory rate 18, oxygen saturation 100% on 4 L per nasal cannula. HEENT: Pupils are equal and reactive. Oropharynx is clear. Neck: Supple. Chest: Reveals bibasilar crackles. Cardiac: S1-S2. Abdomen: Soft. Extremities: Reveal 1+ peripheral edema. LABORATORIES: Sodium 137, potassium 4.4, chloride 97, bicarbonate 27, BUN 58, creatinine 2.1. Arterial blood gas on BiPAP reveals a pH of 7.36, pCO2 of 49, PO2 of 88 with a normal lactate. IMPRESSION: 78-year-old with: 1. Ischemic cardiomyopathy and ejection fraction of 15%. 2. Obesity. 3. Chronic hypoxemic respiratory failure. 4. Small pleural effusions. 5. Probable sleep apnea. RECOMMENDATIONS: 1. Continue BiPAP as tolerated during this hospitalization. 2. Recommend outpatient sleep study. 3. Follow-up proBNP tomorrow to see if her proBNP has decreased with BiPAP and diuresis. 4. Overall prognosis is poor, given severe LV dysfunction and chronic renal insufficiency. cc: Rashel Davila MD
[2018-08-20] MEDS: LIPITOR PO SCH (20:37)
[2018-08-20] MEDS: NEURONTIN PO SCH (20:38)
[2018-08-21] MEDS: TYLENOL PO PRN (00:02)
[2018-08-21] MEDS: DUONEB (A & A) INH SCH ×6 (03:32→22:35)
[2018-08-21] MEDS: HUMULIN R SUBQ SCH ×4 (06:22→20:43)
--- NOTE | 2018-08-21 07:22 | Diag Imaging Result Doc PS360 ---
CHEST-PORTABLE - 08/21/2018 INDICATION: dyspnea COMPARISON: 08/18/2018 FINDINGS: Stable pacemaker. Stable cardiomegaly. No significant infiltrates or edema. No pneumothorax or large pleural effusion. IMPRESSION: Cardiomegaly. Electronically signed by Mario Singleton 08/21/2018 7:20 AM
[2018-08-21 07:48] LABS: HEMATOCRIT 27.5 % (37.0-47.0); HEMOGLOBIN 8.6 g/dL (12.0-16.0); MCH 29.9 PG (27-31); MCHC 31.3 g/dL (33-37); MCV 95.5 FL (81-99); MPV 11.7 FL (7.4-10.4); RBC 2.88 XMIL (4.2-5.4); RDW 16.7 % (11.5-14.5); WBC 4.38 X1000 (4.8-10.8)
[2018-08-21 08:14] LABS: CALCIUM 8.9 mg/dL (8.8-10.2); CREATININE 1.8 mg/dL (0.5-0.9); PHOSPHORUS 4.5 mg/dL (2.7-4.5); POTASSIUM 3.9 mmol/L (3.5-5.1)
[2018-08-21] MEDS: MIRALAX PO SCH (08:54)
[2018-08-21] MEDS: COLACE PO SCH ×2 (08:54→20:47)
[2018-08-21] MEDS: BIDIL PO SCH ×3 (08:55→20:43)
[2018-08-21] MEDS: ELIQUIS PO SCH ×2 (08:55→20:40)
[2018-08-21] MEDS: FOLIC ACID PO SCH (08:55)
[2018-08-21] MEDS: LANOXIN PO SCH (08:56)
[2018-08-21] MEDS: LASIX IV SCH ×2 (08:57→20:40)
[2018-08-21] MEDS: PLAVIX PO SCH (08:57)
[2018-08-21] MEDS: COREG PO SCH ×2 (08:57→20:40)
[2018-08-21] MEDS: ICAR-C PO SCH (08:57)
[2018-08-21] MEDS ORDERED: TUSSIONEX LIQUID PO ONE (10:22)
[2018-08-21] MEDS: TESSALON PO SCH ×3 (10:38→20:43)
--- NOTE | 2018-08-21 12:15 | PROGRESS NOTE ---
DATE: 08/21/2018 SUBJECTIVE: The patient complains of a persistent cough. She denies having any chest pain or shortness of breath. OBJECTIVE: Vital Signs: Temperature 97.5 degrees, blood pressure 122/67, heart rate 54, respirations 18, O2 saturation 94% on 3 L nasal cannula. General: This is a clinically ill- appearing female sitting up resting in bed in no acute distress. Heart: S1, S2 normal. Bradycardia. Lungs: Equal air entry bilaterally. Diminished breath sounds at the bases. No crackles. No rales. Abdomen: Positive bowel sounds. Soft, nontender, nondistended. Extremities: 1+ edema bilaterally. No calf tenderness. Neurologic: The patient is alert and oriented x4. She is hard of hearing. LABORATORIES: White blood cell count 4.3, hemoglobin 8.6, hematocrit 27, platelets 179,000. Sodium 134, potassium 3.9, chloride 95, CO2 26, BUN 52, creatinine 1.8, glucose 173. Chest x-ray shows cardiomegaly. ASSESSMENT AND PLAN: 1. Acute on chronic systolic congestive heart failure exacerbation. 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 2. Chronic hypoxemic respiratory failure. Continue with BiPAP at night. 3. Acute kidney injury on chronic kidney disease. Improved. 4. Ischemic cardiomyopathy, status post AICD. Aware. 5. Atrial fibrillation. Continue on the current medication regimen. 6. Diabetes mellitus type 2. Continue with sliding scale insulin. 7. Urinary tract infection secondary to ESBL E. coli. Continue on Invanz. 8. Constipation. Continue with scheduled laxative therapy. 9. Anemia. We will continue to monitor this closely. 10. Continue with physical therapy. cc: Shaina Barron MD
--- NOTE | 2018-08-21 13:40 | CARDIOLOGY PROGRESS NOTE ---
DATE: 08/21/2018 SUBJECTIVE: She reports she is doing better. She is ambulating to the restroom without any difficulties. OBJECTIVE: Vitals: She is afebrile, heart rate is 73, blood pressure 110/83. Generally: No acute distress. Cardiovascular: She is in a regular rate and rhythm. She has no murmurs. Chest: Exam has mild end-expiratory wheezes. Abdomen: Soft, nontender, nondistended. Extremities: She has no lower extremity edema. She has warm and well perfused extremities. INPUT AND OUTPUT: Difficult to track secondary to her incontinence. PERTINENT DATA: Her white count is 4.3, hematocrit 27, platelet count 179,000. Her sodium is 134, potassium 3.9, BUN 52, creatinine is 1.8, which is down from previous. Her proBNP is 20,251, which is slightly down from admit. ASSESSMENT: Ms. Saeed is a 78-year-old female with systolic heart failure. PLAN: Her Entresto and Aldactone had been discontinued previously secondary to renal insufficiency. I have added in BiDil and will escalate to 1 tablet t.i.d. today. We will continue on diuretics in the form of Lasix 40 mg IV q.12. cc: Shalom Childers MD
[2018-08-21] MEDS: INVANZ 1 GM/NS 1 GM/50 ML IVPB IV SCH (14:25)
[2018-08-21] MEDS: LIPITOR PO SCH (20:40)
[2018-08-21] MEDS: NEURONTIN PO SCH (20:40)
--- NOTE | 2018-08-21 20:50 | PULMONOLOGY PROGRESS NOTE ---
DATE: 08/21/2018 SUBJECTIVE: Patient used BiPAP last evening but had a little bit more trouble than on her initial trial. She reports her breathing has improved and she has been able to ambulate short distances. OBJECTIVE: Vital Signs: Blood pressure 124/66, heart rate 62, respiratory rate 18, oxygen saturation 98% on 3 L per nasal cannula. HEENT: Pupils are equal and reactive. Oropharynx is clear. Neck: Is supple. Chest: Reveals prolonged expiratory phase with crackles in both lung bases. Deep inspiration leads to a cough. Cardiac: S1-S2. Abdomen: Is soft. Extremities: Reveal 1+ peripheral edema. LABORATORIES: ProBNP is elevated at 20,251. White blood count 4.38, hemoglobin 8.6, platelet count 179,000. Chest x-ray reveals cardiomegaly with mild vascular prominence and minimal blunting of the angles. IMPRESSION: 78-year-old with 1. Pulmonary edema. 2. Ischemic cardiomyopathy with ejection fraction of 15%. 3. Morbid obesity. 4. Chronic hypoxemic respiratory failure. 5. Probable sleep apnea. RECOMMENDATIONS: 1. Continue BiPAP as tolerated during this hospitalization. 2. Recommend outpatient sleep study. 3. Overall prognosis is guarded given LV dysfunction, obesity, and chronic renal insufficiency. The patient is acceptable for discharge from a pulmonary standpoint when she is acceptable from a cardiology standpoint. cc: Rashel Davila MD
[2018-08-22] MEDS: DUONEB (A & A) INH SCH ×5 (03:50→23:47)
[2018-08-22] MEDS: HUMULIN R SUBQ SCH ×4 (06:06→23:11)
[2018-08-22 08:05] LABS: HEMOGLOBIN 8.6 g/dL (12.0-16.0); MCH 29.1 PG (27-31); MCHC 30.7 g/dL (33-37); MCV 94.6 FL (81-99); MPV 11.8 FL (7.4-10.4); RBC 2.96 XMIL (4.2-5.4); RDW 16.8 % (11.5-14.5); WBC 4.78 X1000 (4.8-10.8)
[2018-08-22 08:35] LABS: ALBUMIN 3.9 g/dL (3.5-5.0); CALCIUM 9.1 mg/dL (8.8-10.2); CREATININE 1.8 mg/dL (0.5-0.9); PHOSPHORUS 4.9 mg/dL (2.7-4.5); POTASSIUM 4.2 mmol/L (3.5-5.1)
[2018-08-22] MEDS: ELIQUIS PO SCH ×2 (09:22→21:04)
[2018-08-22] MEDS: MIRALAX PO SCH (09:22)
[2018-08-22] MEDS: LANOXIN PO SCH (09:22)
[2018-08-22] MEDS: COLACE PO SCH ×2 (09:22→21:05)
[2018-08-22] MEDS: PLAVIX PO SCH (09:22)
[2018-08-22] MEDS: COREG PO SCH ×2 (09:22→21:05)
[2018-08-22] MEDS: TESSALON PO SCH ×3 (09:23→17:07)
[2018-08-22] MEDS: FOLIC ACID PO SCH (09:23)
[2018-08-22] MEDS: ICAR-C PO SCH (09:24)
[2018-08-22] MEDS: LASIX IV SCH ×2 (09:24→21:04)
[2018-08-22] MEDS: BIDIL PO SCH ×3 (09:24→17:07)
--- NOTE | 2018-08-22 09:54 | NEPHROLOGY PROGRESS NOTE ---
DATE: 08/22/2018 SUBJECTIVE: The patient is sitting up on the side of the bed. She states that she has been able to urinate. States that her swelling and her breathing are somewhat better. OBJECTIVE: Vital Signs: Temperature 97.7 degrees, pulse 68, respiratory rate 18, blood pressure 115/48. Intake 820 mL, output 200 voided. General: This is an elderly female resting in bed. She is sitting up. She is trying to eat some breakfast. HEENT: Normocephalic, atraumatic. ERROL. Oral mucosa moist. Neck: Supple. Trachea midline. Cardiovascular: Reveals a regular rate and rhythm. There is no murmur or gallop. Pulmonary: She has some decreased breath sounds. She has some rhonchi posteriorly to the bases. Abdomen: Soft, with positive bowel sounds. : She is voiding. Extremities: She has 1+ edema. She has wrinkling noted to her feet. Integument: Skin is warm and dry with ecchymoses noted. LABORATORY DATA: WBC of 4.3, hemoglobin 8.6. Sodium 134, potassium 3.9, CO2 26, BUN 52, creatinine 1.8 (1.8). ASSESSMENT AND PLAN: 1. Acute on chronic kidney disease. Her creatinine is returning to baseline after withholding her Entresto. Bidil was added. I do not have any opposition to her taking an ARB if cardiology prefers this therapy. rg 2. Fluid volume. It does not appear that we have adequate record. She appears on charting to be about a L positive but she has wrinkling to the lower extremities and improvement in breathing. Her chest x-ray yesterday did not indicate infiltrates or edema or pleural effusion. Noted to have severe cardiomegaly. 3. Electrolytes, acid-base balance. These are all acceptable. Hemoglobin is marginal. Check her iron stores. Dictated by CLAUDIO Post for Abhi Doherty MD Face to face encounter, data reviewed, discussed with Shanon Weiss on 08/22/18. I agree with the above assessment and plan of care. rg cc: Abhi Doherty MD [facility]
[2018-08-22] MEDS: INVANZ 1 GM/NS 1 GM/50 ML IVPB IV SCH (12:50)
--- NOTE | 2018-08-22 19:13 | PROGRESS NOTE ---
DATE: 08/22/2018 SUBJECTIVE: The patient is resting comfortably in bed. No acute events noted overnight. She states that her shortness of breath is about the same. OBJECTIVE: Vital Signs: Temperature 98 degrees, blood pressure 130/74, heart rate 65, respirations 18, O2 saturation 98% on 3 L nasal cannula. General: This is a chronically ill- appearing elderly female lying in bed in no acute distress. Heart: S1, S2 normal. Regular rate and rhythm. Lungs: Equal air entry bilaterally. No crackles, no rales. Abdomen: Positive bowel sounds. Soft, nontender, nondistended. Extremities: 1+ edema. No cyanosis. No calf tenderness. Neuro: The patient is alert and oriented x4. LABS: Hemoglobin 8.6, hematocrit 28, platelets 179,000, sodium 133, potassium 4.2, chloride 94, CO2 27, BUN 53, creatinine 1.8, glucose 156. ASSESSMENT AND PLAN: 1. Acute on chronic systolic congestive heart failure exacerbation. 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 2. Chronic hypoxemic respiratory failure. Continue with BiPAP at night, nasal cannula during the day. 3. Chronic kidney disease. Stable. 4. Ischemic cardiomyopathy status post automated implantable cardioverter defibrillator . Aware. 5. Atrial fibrillation. Continue on the current medications. 6. Diabetes mellitus type 2. Continue on sliding scale insulin. 7. Urinary tract infection secondary to extended spectrum beta-lactamase Escherichia coli. Continue on Invanz. 8. Anemia. Stable. 9. Constipation. Continue with scheduled laxative therapy. 10. Continue with physical therapy. cc: Shaina Barron MD [facility]
[2018-08-22] MEDS: NEURONTIN PO SCH (21:05)
[2018-08-22] MEDS: LIPITOR PO SCH (21:05)
--- NOTE | 2018-08-22 22:24 | PULMONOLOGY PROGRESS NOTE ---
DATE: 08/22/2018 SUBJECTIVE: The patient is awake, alert, and conversant. She is having some difficulty with cough. Oxygenation remains stable. OBJECTIVE: Vital Signs: The patient has been afebrile for the last 24 hours. BP 130/74, heart rate 85, respiratory rate 18, oxygen saturation 98%. HEENT: Pupils are equal and reactive. Oropharynx appears clear. Neck: Supple. Chest: Reveals crackles in both bases. Cardiac exam: S1, S2. Abdomen: Obese and soft. Extremities: Without edema. LABORATORIES: Sodium 133, potassium 4.2, chloride 94, bicarbonate 27, BUN 53, creatinine 1.8. White blood count 4.78, hemoglobin 8.6, platelet count 179,000. IMPRESSION: A 78-year-old with: 1. Pulmonary edema. 2. Hypoxemic respiratory failure. 3. Probable sleep apnea. 4. Cough. 5. Ischemic cardiomyopathy with an ejection fraction of 15%. 6. Chronic renal insufficiency. Despite Lasix 40 mg twice a day, the patient's weight remains stable to increased over the last 2 to 3 days. RECOMMENDATIONS: 1. Continue to try BiPAP at night. 2. Recommend outpatient sleep study. 3. Diurese as tolerated. 4. Overall prognosis is guarded to poor given severe LV dysfunction, obesity, chronic renal insufficiency. cc: Rashel Davila MD
[2018-08-23] MEDS: DUONEB (A & A) INH SCH ×7 (03:52→23:50)
[2018-08-23] MEDS: HUMULIN R SUBQ SCH ×4 (06:56→22:59)
[2018-08-23 08:01] LABS: CALCIUM 9.1 mg/dL (8.8-10.2); CREATININE 1.7 mg/dL (0.5-0.9); PHOSPHORUS 4.5 mg/dL (2.7-4.5)
[2018-08-23 08:07] LABS: MCH 29.3 PG (27-31); MCV 94.5 FL (81-99); MPV 11.9 FL (7.4-10.4); RBC 3.07 XMIL (4.2-5.4); RDW 17.5 % (11.5-14.5); WBC 5.13 X1000 (4.8-10.8)
[2018-08-23 08:14] LABS: IRON SATURATION 23 %; TIBC 289 ug/dL; TOTAL IRON 67 ug/dL (49-151); UNBOUND IRON 222 ug/dL (112-346)
[2018-08-23 08:21] LABS: FERRITIN 182 ng/mL (13-150)
--- NOTE | 2018-08-23 08:30 | NEPHROLOGY PROGRESS NOTE ---
DATE: 08/23/2018 SUBJECTIVE: The patient is currently resting in bed, asleep. She arouses easily to verbal and tactile stimuli. No complaints overnight. States her breathing is well. She has been up and down to the bathroom with minimal assistance. OBJECTIVE: Vital Signs: Temperature 97.9 degrees, pulse 72, respiratory rate 16, blood pressure 115/53. Intake 530 mL. Output has not been recorded. The patient states she has had multiple voids over the last 24 hours. Physical Examination: General: This is an elderly female, resting in bed. She is awake and alert. She is in no acute distress. HEENT: Normocephalic, atraumatic. ERROL. Oral mucosa moist. Neck: Supple. No JVD appreciated. Pulmonary: She is clear bilaterally. She remains on O2 supplementation via nasal cannula. Abdomen: Obese and soft. Positive bowel sounds. : She is voiding. Extremities: No clubbing, cyanosis. Trace edema. Integumentary: Skin is warm and dry. Lab Data: Pending. ASSESSMENT AND PLAN: 1. Acute on chronic kidney disease. Renal function yesterday demonstrated stability. Again, we have no objection if cardiology feels that the patient needs ARB therapy. 2. Fluid volume. Again, her edema appears to be improving. Patient reports multiple voids. 3. Electrolytes, acid-base balance, anemia. Her labs are pending. Dictated by CLAUDIO Post for Abhi Doherty MD Face to face encounter, data reviewed, discussed with Shanon Weiss on 08/23/18. I agree with the above assessment and plan of care. cc: Abhi Doherty MD [facility]
[2018-08-23] MEDS: ELIQUIS PO SCH ×2 (09:29→22:58)
[2018-08-23] MEDS: TESSALON PO SCH ×3 (09:29→17:07)
[2018-08-23] MEDS: COLACE PO SCH ×2 (09:29→22:58)
[2018-08-23] MEDS: PLAVIX PO SCH (09:29)
[2018-08-23] MEDS: BIDIL PO SCH ×3 (09:30→17:07)
[2018-08-23] MEDS: COREG PO SCH ×2 (09:30→22:58)
[2018-08-23] MEDS: FOLIC ACID PO SCH (09:30)
[2018-08-23] MEDS: LANOXIN PO SCH (09:30)
[2018-08-23] MEDS: ICAR-C PO SCH (09:30)
[2018-08-23] MEDS: LASIX IV SCH ×2 (09:31→23:00)
[2018-08-23] MEDS: MIRALAX PO SCH (09:32)
[2018-08-23] MEDS: INVANZ 1 GM/NS 1 GM/50 ML IVPB IV SCH (13:15)
--- NOTE | 2018-08-23 14:58 | PROGRESS NOTE ---
DATE: 08/23/2018 SUBJECTIVE: She is sitting up today, seems to be doing okay. She is asking about when she can go home, but then she feels like she is also not strong enough to go home. OBJECTIVE DATA: 124/58, heart rate of 93, respiratory rate of 22, temperature was 99 degrees.Cardiovascular: Regular rate and rhythm. Pulmonary: Bilateral breath sounds clear to auscultation. Gastrointestinal: Soft, nontender, nondistended. Bowel sounds are positive. LABORATORY DATA: White count is 5, hemoglobin 9, hematocrit 29, platelets 189,000. Sodium 131, creatinine 1.7. Other testing is negative. PROBLEM LIST: 1. Acute on chronic systolic heart failure. She is on IV Lasix and seems to be doing okay. No major issues there. 2. Chronic hypoxic respiratory failure. She is on BiPAP and stable. 3. Extended-spectrum beta-lactamase urinary tract infection. She says she is asymptomatic. She says she has had this before and was told to come off antibiotics. She is currently on Invanz and has been on it since the , so 4 days. We may treat for 5 days and see how she does. Again, she reports no dysuria and no other major symptoms so technically she has asymptomatic bacteriuria. 4. Cardiomyopathy, stable. 5. Atrial fibrillation. We will continue regular medications. DISPOSITION: I think she is probably getting close to getting out here. She would not like to go to rehabilitation. She is progressing with PT, and hopefully we can get her home soon. cc: Delfino Moss MD
[2018-08-23] MEDS: LIPITOR PO SCH (22:58)
[2018-08-23] MEDS: NEURONTIN PO SCH (22:58)
[2018-08-24] MEDS: DUONEB (A & A) INH SCH ×6 (03:40→23:30)
[2018-08-24 07:50] LABS: BASO# 0.03 X1000 (0.0-0.2); BASO% 0.6 % (0.0-0.8); EOS# 0.32 X1000 (0.0-0.7); EOS% 5.9 % (0.0-10.0); HEMATOCRIT 29.3 % (37.0-47.0); HEMOGLOBIN 9.1 g/dL (12.0-16.0); LYMPH# 0.67 X1000 (1.2-3.4); LYMPH% 12.3 % (20.5-51.1); MCH 29.2 PG (27-31); MCHC 31.1 g/dL (33-37); MCV 93.9 FL (81-99); MONO# 0.39 X1000 (0.11-0.59); MONO% 7.2 % (1.7-9.3); MPV 11.5 FL (7.4-10.4); NEUT# 4.03 X1000 (1.4-6.5); PLT 204 X1000 (130-400); RBC 3.12 XMIL (4.2-5.4); RDW 17.6 % (11.5-14.5); WBC 5.44 X1000 (4.8-10.8)
--- NOTE | 2018-08-24 07:58 | NEPHROLOGY PROGRESS NOTE ---
DATE: 08/24/2018 SUBJECTIVE: Patient is sitting up on the side of the bed. She bit her lip or tongue yesterday while trying to reposition in the bed and had some bleeding but no other issues. OBJECTIVE: Vital Signs: Temperature 98 degrees, pulse 71, respiratory rate 18, blood pressure 121/61. Intake 480 mL. Output not measured. General: Elderly female. She is sitting up on the side of the bed. She is in no acute distress. HEENT: Normocephalic. She does have some blood noted on her lip. Conjunctivae are pink. Neck: Supple. No JVD appreciated. Pulmonary: She has some rhonchi posterior bases. No wheeze. She remains on O2 supplementation via nasal cannula. Cardiovascular: Regular rate and rhythm. Abdomen: Soft. Positive bowel sounds. : Voiding. Extremities: Trace edema improving. No clubbing, cyanosis. Integumentary: Skin is warm and dry. She does have vascular changes noted bilateral lower extremities. LABORATORY DATA: Of note, her creatinine yesterday was 1.7. ASSESSMENT AND PLAN: 1. Acute on chronic kidney disease. Her renal function has continued to demonstrate stability. No change to current plan. 2. Fluid volume. Persistent edema and some SOB. 3. Systolic heart failure. Followed by primary. Continues on Lasix. 4. Urinary tract infection. Finishing up antibiotics. 5. Disposition. From a renal perspective, no contraindication for discharge at the discretion of the primary. She will follow up in our office in about 3 weeks. Dictated by CLAUDIO Post for Abhi Doherty MD Face to face encounter, data reviewed, discussed with Shanon Weiss on 08/24/18. I agree with the above assessment and plan of care. cc: Abhi Doherty MD [facility]
[2018-08-24 07:59] LABS: ALBUMIN 4.3 g/dL (3.5-5.0); CALCIUM 9.6 mg/dL (8.8-10.2); CREATININE 1.5 mg/dL (0.5-0.9); PHOSPHORUS 3.9 mg/dL (2.7-4.5); POTASSIUM 4.3 mmol/L (3.5-5.1)
[2018-08-24] MEDS: HUMULIN R SUBQ SCH ×4 (08:16→22:40)
[2018-08-24] MEDS: MIRALAX PO SCH (09:40)
[2018-08-24] MEDS: ZAROXOLYN PO SCH (09:41)
[2018-08-24] MEDS: BIDIL PO SCH ×3 (09:41→22:43)
[2018-08-24] MEDS: ELIQUIS PO SCH ×2 (09:41→22:36)
[2018-08-24] MEDS: PLAVIX PO SCH (09:41)
[2018-08-24] MEDS: FOLIC ACID PO SCH (09:41)
[2018-08-24] MEDS: LASIX IV SCH ×2 (09:41→22:37)
[2018-08-24] MEDS: TESSALON PO SCH ×4 (09:41→22:40)
[2018-08-24] MEDS: COLACE PO SCH ×2 (09:41→22:37)
[2018-08-24] MEDS: ICAR-C PO SCH (09:41)
[2018-08-24] MEDS: LANOXIN PO SCH (09:41)
[2018-08-24] MEDS: COREG PO SCH ×2 (09:41→22:36)
[2018-08-24] MEDS: INVANZ 1 GM/NS 1 GM/50 ML IVPB IV SCH (15:13)
--- NOTE | 2018-08-24 15:28 | PROGRESS NOTE ---
DATE: 08/24/2018 SUBJECTIVE: Patient has no major complaints. Again, denies any dysuria or anything like that. OBJECTIVE: Blood pressure 137/63, heart rate 75, respiratory rate 20, and temperature 97.7 degrees.Cardiovascular: Regular rate and rhythm. Pulmonary: Bilateral breath sounds. No wheezing. No rales. GI: Soft, nontender, and nondistended. Bowel sounds are positive. LABORATORY DATA: White count 5, hemoglobin and hematocrit 9 and 29, and platelets 204,000. Creatinine is at 1.5. PROBLEM LIST: 1. Acute on chronic CHF exacerbation. She is on Lasix and seems to be doing okay. No major problems there. We will continue treatment. 2. Chronic hypoxic respiratory failure due to CHF and other issues. She is on BiPAP at night intermittently. 3. ESBL positive on urine culture. She is asymptomatic. She has had this issue before. At this point, I am not planning to continue antibiotics because technically she has asymptomatic bacteriuria. 4. Cardiomyopathy as described above. 5. Atrial fibrillation is stable. DISPOSITION: Anticipate discharge to rehab in another 1 to 2 days pending her clinical status. cc: Delfino Moss MD
[2018-08-24] MEDS: NEURONTIN PO SCH (22:36)
[2018-08-24] MEDS: LIPITOR PO SCH (22:37)
[2018-08-24] MEDS: TYLENOL PO PRN (22:51)
[2018-08-25] MEDS: DUONEB (A & A) INH SCH ×5 (05:22→20:00)
[2018-08-25] MEDS: HUMULIN R SUBQ SCH ×4 (06:47→23:08)
[2018-08-25 07:44] LABS: BASO# 0.04 X1000 (0.0-0.2); BASO% 0.8 % (0.0-0.8); EOS# 0.37 X1000 (0.0-0.7); EOS% 7.6 % (0.0-10.0); HEMATOCRIT 28.1 % (37.0-47.0); HEMOGLOBIN 8.6 g/dL (12.0-16.0); LYMPH# 0.73 X1000 (1.2-3.4); LYMPH% 15.1 % (20.5-51.1); MCH 29.1 PG (27-31); MCHC 30.6 g/dL (33-37); MCV 94.9 FL (81-99); MONO# 0.46 X1000 (0.11-0.59); MONO% 9.5 % (1.7-9.3); MPV 11.2 FL (7.4-10.4); NEUT# 3.25 X1000 (1.4-6.5); PLT 176 X1000 (130-400); RBC 2.96 XMIL (4.2-5.4); RDW 17.8 % (11.5-14.5); WBC 4.85 X1000 (4.8-10.8)
[2018-08-25 08:24] LABS: ALBUMIN 4.1 g/dL (3.5-5.0); CALCIUM 9.1 mg/dL (8.8-10.2); CREATININE 1.5 mg/dL (0.5-0.9); PHOSPHORUS 4.4 mg/dL (2.7-4.5); POTASSIUM 4.1 mmol/L (3.5-5.1)
[2018-08-25] MEDS: LANOXIN PO SCH (09:06)
[2018-08-25] MEDS: PLAVIX PO SCH (09:06)
[2018-08-25] MEDS: ELIQUIS PO SCH ×2 (09:06→23:07)
[2018-08-25] MEDS: FOLIC ACID PO SCH (09:06)
[2018-08-25] MEDS: COLACE PO SCH ×2 (09:06→23:07)
[2018-08-25] MEDS: COREG PO SCH ×2 (09:07→23:07)
[2018-08-25] MEDS: LASIX IV SCH ×3 (09:07→14:01)
[2018-08-25] MEDS: ICAR-C PO SCH (09:07)
[2018-08-25] MEDS: TESSALON PO SCH ×3 (09:07→23:08)
[2018-08-25] MEDS: ZAROXOLYN PO SCH (09:07)
[2018-08-25] MEDS: BIDIL PO SCH ×3 (09:07→23:07)
[2018-08-25] MEDS: MIRALAX PO SCH (09:07)
[2018-08-25] MEDS: INVANZ 1 GM/NS 1 GM/50 ML IVPB IV SCH (14:01)
--- NOTE | 2018-08-25 14:24 | NEPHROLOGY PROGRESS NOTE ---
DATE: 08/25/2018 SUBJECTIVE: Patient resting in bed. She has had an uneventful night. OBJECTIVE: Vital Signs: Temperature 97.8 degrees, pulse 65, respiratory rate 18, blood pressure 110/57. Intake 720 mL. Output was not measured. Physical Examination: General: Elderly female, resting in bed. No acute distress. HEENT: Normocephalic, atraumatic. She does not have any oral bleeding today. ERROL. Neck: Supple, without JVD. Cardiovascular: Regular rate and rhythm. Pulmonary: She is clear bilaterally. She remains on O2 supplementation via nasal cannula. Abdomen: Soft, obese. Positive bowel sounds. : Continues to void. Extremities: Trace edema, continues to improve. Integumentary: Skin is warm and dry with vascular changes. Lab Data: Creatinine 1.5, CO2 25, potassium 4.3. ASSESSMENT AND PLAN: 1. Acute on chronic kidney disease. Renal function has been stable overnight and the last several days. No change to current plan. 2. Fluid volume. It appears she has continued to maintain and/or diuresis. 3. Systolic heart failure. Followed by primary. Continues on Lasix. Followed by cardiology. 4. Disposition. From a renal perspective, her renal function has stabilized from when we first saw her in the office. We will follow up in 3 weeks with labs. Dictated by CLAUDIO Post for Abhi Doherty MD Face to face encounter, data reviewed, discussed with Shanon Weiss on 08/25/18. I agree with the above assessment and plan of care. cc: Abhi Doherty MD [facility]
--- NOTE | 2018-08-25 14:57 | PROGRESS NOTE ---
DATE: 08/25/2018 SUBJECTIVE: The patient has no major complaints, except she describes facial swelling. She thinks her legs are swelling again. She is still having some shortness of breath. OBJECTIVE: Vital Signs: Blood pressure is 119/59, heart rate 67 respiratory rate 22, temperature 98 degrees, 96% on 3 L. Cardiovascular: Regular rate and rhythm. Pulmonary: Bilateral breath sounds. Clear to auscultation. GI: Soft, nontender, nondistended. Bowel sounds are positive. LABORATORY DATA: White count 4, hemoglobin and hematocrit 8 and 28, platelets 176,000. Creatinine 1.5. PROBLEM LIST: 1. Acute on chronic congestive heart failure. She is on Lasix and seems to be doing okay. No major complaints. 2. Chronic respiratory failure. She is on BiPAP. 3. Extended spectrum beta lactamase positive Escherichia coli, but she is asymptomatic. She reports no dysuria, nothing from that standpoint. So, we will continue to monitor. She is on Invanz which had been started, I am just going to complete her course. She is probably going to be here another 1 to 2 days. 4. Hernia. She is having some hernia discomfort, but she is having bowel movements. No throwing up. She does stay somewhat constipated. We will ensure that she is on appropriate bowel regimen and follow. 5. Chronic renal failure stage 2. We are continuing to monitor. Renal service is following and they feel that she is stable for discharge. Of course, the patient does not feel she is stable for discharge nor her, I am not sure if it is a friend or may be a sister I think. They also do not rehab but they also do not want to go home. But in any case, we are going to continue to follow closely. 6. Disposition. Pending her clinical status. Hopefully discharge soon. I have bumped up the Lasix because the weight has increased from admission, if admission weight was accurate. She did drop to 166 and now she is back up to 176, although down from 178 yesterday. We will get a chest x-ray too just to make sure that there israel no major issues there. But hopefully, anticipate discharge in next 1 to 2 days. cc: Delfino Moss MD
--- NOTE | 2018-08-25 15:32 | Diag Imaging Result Doc PS360 ---
EXAM: FLAT/UPRIGHT ABD/1 VIEW CHEST - 08/25/2018 HISTORY: ileus, ventral hernia TECHNIQUE: Supine and upright abdomen one view chest COMPARISON: 08/21/2018 portable chest FINDINGS: The bowel gas pattern appears nonspecific and nonobstructive. There is no free air identified. There are surgical clips at the right upper quadrant. There are atherosclerotic calcifications noted in the abdominal aorta. Upright chest shows stable cardiomegaly. There is transvenous cardiac pacemaker again seen. There is stable mild prominence of central vascular markings. There is no acute consolidation, pleural effusion, or pneumothorax identified. IMPRESSION: Nonspecific bowel gas pattern. Stable chest. Electronically signed by Nicola Hopkins 08/25/2018 3:30 PM
--- NOTE | 2018-08-25 22:33 | PULMONOLOGY PROGRESS NOTE ---
DATE: 08/25/2018 SUBJECTIVE: The patient reports she has severe fatigue. She has shortness of breath with any movement. She is concerned about her umbilical hernia, but this is nontender. She has had some increasing peripheral edema. OBJECTIVE: Vital Signs: The patient has been afebrile for the last 24 hours. Blood pressure 112/60, heart rate 63, respiratory rate 21, oxygen saturation 100% on 3 L per nasal cannula. HEENT: Pupils are equal and reactive. Oropharynx is clear. Neck: Supple. Chest: Reveals diminished breath sounds bilaterally. Cardiac Exam: S1-S2. Abdomen: Obese and soft with a reducible umbilical hernia. Extremities: Reveal 1+ peripheral edema. LABORATORIES: Sodium 136, potassium 4.1, chloride 95, bicarbonate 27, BUN 46, creatinine 1.5. Chest x-ray reveals cardiomegaly with vascular prominence but no effusions or consolidations. IMPRESSION: 1. A 78-year-old with chronic hypoxemic respiratory failure. 2. Probable sleep apnea. 3. Severe ischemic cardiomyopathy with ejection fraction of 15%. 4. Chronic renal insufficiency. DISCUSSION: A 78-year-old with problems outlined above. The patient does not want to go to rehab and she likely does not have significant rehab potential given her age, weight, and severe cardiomyopathy. She is likely reaching her maximum benefit from her hospital stay and her long- term prognosis appears to be poor. She is only having marginal benefit or success with the BiPAP. RECOMMENDATIONS: 1. Diuresis as tolerated as outlined by Dr. Moss. 2. Consider outpatient sleep study. 3. Continue oxygen for hypoxemic respiratory failure. 4. Consider hospice at the time of discharge. cc: Rashel Davila MD
[2018-08-25] MEDS: LIPITOR PO SCH (23:07)
[2018-08-25] MEDS: NEURONTIN PO SCH (23:07)
[2018-08-26] MEDS: LASIX IV SCH ×2 (01:00→14:24)
[2018-08-26] MEDS: DUONEB (A & A) INH SCH ×6 (03:10→19:33)
[2018-08-26] MEDS: HUMULIN R SUBQ SCH ×4 (06:16→22:25)
--- NOTE | 2018-08-26 07:17 | Diag Imaging Result Doc PS360 ---
CHEST-PORTABLE - 08/26/2018 INDICATION: abnormal exam COMPARISON: 08/25/2018 FINDINGS: Stable pacemaker. Stable low lung volumes. Stable mild cardiomegaly. No infiltrates or edema. No pneumothorax or pleural effusion. IMPRESSION: Mild cardiomegaly. Electronically signed by Mario Singleton 08/26/2018 7:15 AM
[2018-08-26 07:23] LABS: BASO# 0.04 X1000 (0.0-0.2); BASO% 0.9 % (0.0-0.8); EOS# 0.36 X1000 (0.0-0.7); EOS% 7.7 % (0.0-10.0); HEMATOCRIT 28.5 % (37.0-47.0); LYMPH# 0.59 X1000 (1.2-3.4); LYMPH% 12.6 % (20.5-51.1); MCH 29.7 PG (27-31); MCHC 31.6 g/dL (33-37); MCV 94.1 FL (81-99); MONO# 0.38 X1000 (0.11-0.59); MONO% 8.1 % (1.7-9.3); NEUT# 3.31 X1000 (1.4-6.5); NEUT% 70.7 % (42.2-75.2); PLT 185 X1000 (130-400); RBC 3.03 XMIL (4.2-5.4); WBC 4.68 X1000 (4.8-10.8)
[2018-08-26 07:56] LABS: ALBUMIN 3.8 g/dL (3.5-5.0); CALCIUM 9.1 mg/dL (8.8-10.2); CREATININE 1.5 mg/dL (0.5-0.9); PHOSPHORUS 4.2 mg/dL (2.7-4.5); POTASSIUM 3.7 mmol/L (3.5-5.1)
[2018-08-26] MEDS: ELIQUIS PO SCH ×2 (09:13→22:27)
[2018-08-26] MEDS: ZAROXOLYN PO SCH (09:13)
[2018-08-26] MEDS: FOLIC ACID PO SCH (09:13)
[2018-08-26] MEDS: PLAVIX PO SCH (09:13)
[2018-08-26] MEDS: COREG PO SCH ×2 (09:13→22:27)
[2018-08-26] MEDS: LANOXIN PO SCH (09:13)
[2018-08-26] MEDS: BIDIL PO SCH ×3 (09:14→22:30)
[2018-08-26] MEDS: MIRALAX PO SCH (09:14)
[2018-08-26] MEDS: COLACE PO SCH ×2 (09:14→22:26)
[2018-08-26] MEDS: ICAR-C PO SCH (09:14)
[2018-08-26] MEDS: TESSALON PO SCH ×3 (09:14→22:26)
--- NOTE | 2018-08-26 09:50 | NEPHROLOGY PROGRESS NOTE ---
DATE: 08/26/2018 SUBJECTIVE: She is sitting up in the chair. She states she has not walked yet and remains quite weak. Otherwise, she also complains of feeling subjectively cold. No other new symptoms and she is eating acceptably well. OBJECTIVE: Vital Signs: Blood pressure 120/63, heart rate 74, respiration 18, afebrile. Intake and output are incomplete. General: Again sitting up in the chair. No acute distress. Skin: Warm and dry. Conjunctivae are pink. Neck: Neck veins are not distended. Heart: Regular. No gallops. Lungs: Equal. No crackles. Abdomen: Soft, nontender. Bowel sounds present. Extremities: With trace edema. No clubbing or cyanosis. IMPRESSION: Acute kidney injury overlying chronic kidney disease. Her creatinine is at her historical baseline. I have nothing further to add so I will sign off today but if I can be of further assistance, please do not hesitate to call. cc: Abhi Doherty MD
--- NOTE | 2018-08-26 11:39 | PROGRESS NOTE ---
DATE: 08/26/2018 SUBJECTIVE: The patient is still short of breath kind of at baseline I feel like, or at least her new adjusted baseline. OBJECTIVE: She has no real major complaints. Her vital signs are stable. Blood pressure is 118/62, heart rate of 70, respiratory rate 16, temperature 97.8 degrees, and 97% on 2 L. Cardiovascular: Regular rate and rhythm. Pulmonary: Bilateral breath sounds clear to auscultation. GI: Soft, nontender, and nondistended. Bowel sounds are positive. LABORATORY DATA: White count is 4, hemoglobin and hematocrit 9 and 28, and platelets 185,000. Creatinine of 1.5. PROBLEM LIST: 1. Acute on chronic CHF. She is on Lasix, and seems to be doing okay. 2. Chronic respiratory failure. She is intermittently on BiPAP. We will need outpatient sleep studies. 3. Ventral hernia. Plain films are stable. We will continue bowel regimen. 4. Chronic renal failure stage 3B most likely. She is stable currently on increased dose of diuretics. Her weight has come down a bit, but we do not have a weight done today. In any case, patient is stable. I agree. We are reaching the end of what can be accomplished inpatient [facility]. DISPOSITION: She is reluctant to go to rehab, but then she feels like she is weak. At rehab, there is too much exercising going on. It is a difficult situation, but I would say we need to decide about going home. I think hospice is appropriate, but I do not think she is ready for that. She states that she still wants everything done, but I think her heart failure has progressed to the point where I am not sure how much more can be done. Cardiology had been following her, but we will see. I do not think they have seen her in several days. I just do not think her rehab would be of very much benefit. I agree with Dr. Davila. Plus, she does not really want to participate in it, so it is just a difficult situation overall. I think she would prefer to go home if she had options so we will continue to follow. cc: Delfino Moss MD
[2018-08-26] MEDS: INVANZ 1 GM/NS 1 GM/50 ML IVPB IV SCH (14:24)
[2018-08-26] MEDS: NEURONTIN PO SCH (22:26)
[2018-08-26] MEDS: LIPITOR PO SCH (22:27)
[2018-08-27] MEDS: DUONEB (A & A) INH SCH ×6 (00:18→19:57)
[2018-08-27] MEDS: LASIX IV SCH ×2 (01:22→15:06)
[2018-08-27] MEDS: HUMULIN R SUBQ SCH ×4 (06:11→22:16)
[2018-08-27 07:53] LABS: BASO# 0.04 X1000 (0.0-0.2); BASO% 0.8 % (0.0-0.8); EOS# 0.29 X1000 (0.0-0.7); EOS% 5.5 % (0.0-10.0); HEMATOCRIT 28.5 % (37.0-47.0); HEMOGLOBIN 8.9 g/dL (12.0-16.0); LYMPH# 0.71 X1000 (1.2-3.4); LYMPH% 13.6 % (20.5-51.1); MCH 29.3 PG (27-31); MCHC 31.2 g/dL (33-37); MCV 93.8 FL (81-99); MONO% 7.6 % (1.7-9.3); MPV 11.1 FL (7.4-10.4); NEUT# 3.79 X1000 (1.4-6.5); NEUT% 72.5 % (42.2-75.2); PLT 200 X1000 (130-400); RBC 3.04 XMIL (4.2-5.4); RDW 18.1 % (11.5-14.5); WBC 5.23 X1000 (4.8-10.8)
[2018-08-27 08:23] LABS: CREATININE 1.6 mg/dL (0.5-0.9); PHOSPHORUS 4.7 mg/dL (2.7-4.5); POTASSIUM 3.7 mmol/L (3.5-5.1)
[2018-08-27] MEDS: COREG PO SCH ×2 (09:43→22:16)
[2018-08-27] MEDS: TESSALON PO SCH ×3 (09:43→22:16)
[2018-08-27] MEDS: ICAR-C PO SCH (09:43)
[2018-08-27] MEDS: BIDIL PO SCH ×3 (09:43→22:16)
[2018-08-27] MEDS: ELIQUIS PO SCH ×2 (09:43→22:16)
[2018-08-27] MEDS: FOLIC ACID PO SCH (09:43)
[2018-08-27] MEDS: COLACE PO SCH ×2 (09:43→22:16)
[2018-08-27] MEDS: LANOXIN PO SCH (09:43)
[2018-08-27] MEDS: ZAROXOLYN PO SCH (09:43)
[2018-08-27] MEDS: PLAVIX PO SCH (09:43)
[2018-08-27] MEDS: MIRALAX PO SCH (09:44)
--- NOTE | 2018-08-27 15:43 | PROGRESS NOTE ---
DATE: 08/27/2018 SUBJECTIVE: Patient has no major complaints. OBJECTIVE: Vital signs: Blood pressure is 112/67, heart rate of 80, respiratory 18, temperature 97.6 degrees, 100% on 3 L. Cardiovascular: Regular rate and rhythm. Pulmonary: Bilateral breath sounds clear to auscultation. Gastrointestinal: Soft, nontender, nondistended. Bowel sounds are positive. Extremities: Her peripheral edema is still 1 to 2+. LABORATORY DATA: White count is 5, hemoglobin and hematocrit 8.9 and 28, platelets 200,000. Sodium 134, BUN and creatinine are 51 and 1.6 which is a little bit up from yesterday but is basically stable. Blood sugars in the 200s. She looks like she is breathing well. ASSESSMENT AND PLAN: 1. Acute on chronic heart failure, systolic. We will continue diuretics, medications. 2. Acute on chronic respiratory failure. She is on breathing treatments, BiPAP. 3. Chronic renal failure stage IIIB. We see her numbers today 31 yet I think it is IIIB still. DISPOSITION: She does not want to go to rehab. We have discussed that so we are looking at hospice evaluation on Wednesday and a possible discharge on Wednesday to hospice, but we will follow. Disposition pending clinical status. We will work on code status while she is here too. cc: Delfino Moss MD
[2018-08-27] MEDS: LIPITOR PO SCH (22:16)
[2018-08-27] MEDS: NEURONTIN PO SCH (22:16)
[2018-08-28] MEDS: DUONEB (A & A) INH SCH ×7 (00:27→23:49)
[2018-08-28] MEDS: LASIX IV SCH (01:20)
[2018-08-28] MEDS: HUMULIN R SUBQ SCH ×4 (06:29→21:45)
[2018-08-28 07:26] LABS: BASO# 0.04 X1000 (0.0-0.2); BASO% 0.7 % (0.0-0.8); EOS# 0.34 X1000 (0.0-0.7); EOS% 6.1 % (0.0-10.0); HEMATOCRIT 29.6 % (37.0-47.0); HEMOGLOBIN 9.2 g/dL (12.0-16.0); LYMPH# 0.77 X1000 (1.2-3.4); LYMPH% 13.7 % (20.5-51.1); MCH 29.2 PG (27-31); MCHC 31.1 g/dL (33-37); MONO% 8.9 % (1.7-9.3); MPV 10.9 FL (7.4-10.4); NEUT# 3.96 X1000 (1.4-6.5); NEUT% 70.6 % (42.2-75.2); PLT 212 X1000 (130-400); RBC 3.15 XMIL (4.2-5.4); RDW 18.2 % (11.5-14.5); WBC 5.61 X1000 (4.8-10.8)
[2018-08-28 07:48] LABS: CALCIUM 9.6 mg/dL (8.8-10.2); CREATININE 1.9 mg/dL (0.5-0.9); PHOSPHORUS 4.9 mg/dL (2.7-4.5); POTASSIUM 3.8 mmol/L (3.5-5.1)
[2018-08-28] MEDS: TESSALON PO SCH ×3 (10:36→21:45)
[2018-08-28] MEDS: COLACE PO SCH ×2 (10:36→21:45)
[2018-08-28] MEDS: PLAVIX PO SCH (10:36)
[2018-08-28] MEDS: ICAR-C PO SCH (10:36)
[2018-08-28] MEDS: ZAROXOLYN PO SCH (10:36)
[2018-08-28] MEDS: ELIQUIS PO SCH ×2 (10:36→21:45)
[2018-08-28] MEDS: FOLIC ACID PO SCH (10:36)
[2018-08-28] MEDS: BIDIL PO SCH ×3 (10:36→21:45)
[2018-08-28] MEDS: LANOXIN PO SCH (10:36)
[2018-08-28] MEDS: MIRALAX PO SCH (10:37)
[2018-08-28] MEDS: COREG PO SCH ×2 (10:37→21:45)
[2018-08-28] MEDS: TYLENOL PO PRN (14:44)
--- NOTE | 2018-08-28 16:52 | PROGRESS NOTE ---
DATE: 08/28/2018 SUBJECTIVE: She looks stable. No major complaints. No major issues. She is breathing okay. She says she feels tired, but she said that for the entire week I have seen her. OBJECTIVE: Vital Signs: Blood pressure 127/74, heart rate of 64, respiratory rate of 17, temperature 97.4 degrees, and 98% on 2 L. Cardiovascular: Regular rate and rhythm. Pulmonary: Bilateral breath sounds clear to auscultation. GI: Soft, nontender, nondistended. Bowel sounds are positive. LABORATORY DATA: Her white count is 5, hemoglobin and hematocrit 9 and 29, platelets 212,000. Creatinine 1.9. PROBLEM LIST: 1. Acute systolic heart failure exacerbation. We will continue to follow. Anticipate discharge tomorrow. She seems to be doing okay. I am going to switch her to p.o. Lasix as she has had a bump in her creatinine, which was expected because we had increased her diuretics. 2. [id number] respiratory failure secondary to congestive heart failure and chronic obstructive pulmonary disease. She is on breathing treatments and BiPAP. Follow. 3. Chronic renal failure stage IIIB. Her creatinine did jump up a little bit, but that is not unexpected. 4. Disposition. I anticipate hopefully we can get her home with hospice tomorrow. It has been kind of a long work in process. She is still not completely certain about several of the issues, but we will continue to monitor closely. DISPOSITION: Pending her clinical status. cc: Delfino Moss MD
[2018-08-28] MEDS: NEURONTIN PO SCH (21:45)
[2018-08-28] MEDS: LIPITOR PO SCH (21:45)
[2018-08-29] MEDS: DUONEB (A & A) INH SCH ×3 (03:52→11:55)
[2018-08-29] MEDS: HUMULIN R SUBQ SCH (06:10)
[2018-08-29 08:55] LABS: CALCIUM 9.4 mg/dL (8.8-10.2); CREATININE 1.7 mg/dL (0.5-0.9); POTASSIUM 3.6 mmol/L (3.5-5.1)
[2018-08-29] MEDS ORDERED: LASIX PO SCH (09:00)
[2018-08-29] MEDS: ELIQUIS PO SCH (09:14)
[2018-08-29] MEDS: TESSALON PO SCH (09:14)
[2018-08-29] MEDS: PLAVIX PO SCH (09:14)
[2018-08-29] MEDS: MIRALAX PO SCH (09:14)
[2018-08-29] MEDS: ZAROXOLYN PO SCH (09:15)
[2018-08-29] MEDS: ICAR-C PO SCH (09:15)
[2018-08-29] MEDS: BIDIL PO SCH (09:15)
[2018-08-29] MEDS: COREG PO SCH (09:15)
[2018-08-29] MEDS: FOLIC ACID PO SCH (09:16)
[2018-08-29] MEDS: LANOXIN PO SCH (09:16)
[2018-08-29] MEDS: COLACE PO SCH (09:16)
[2018-08-29 11:09] VITALS: BP 115/70
--- NOTE | 2018-08-29 13:02 | DISCHARGE SUMMARY ---
ADMISSION DATE: 08/19/2018 DISCHARGE DATE: DISCHARGE DIAGNOSES: 1. Acute systolic heart failure. 2. Acute on chronic renal failure with chronic renal failure being stage IIIB at the end. 3. Diabetes. 4. Chronic Extended spectrum beta-lactamase Escherichia coli positive urine culture but asymptomatic bacteriuria. 5. Type 2 diabetes. 6. Atrial fibrillation. 7. History of coronary artery disease. DISCHARGE DIAGNOSES: 1. Acute systolic heart failure. 2. Acute on chronic renal failure with chronic renal failure being stage IIIB at the end. 3. Diabetes. 4. Chronic Extended spectrum beta-lactamase Escherichia coli positive urine culture but asymptomatic bacteriuria. 5. Type 2 diabetes. 6. Atrial fibrillation. 7. History of coronary artery disease. INDICATIONS: Briefly this is a 78-year-old female with CHF, cardiomyopathy, EF 15 to 20 percent, renal failure, which has progressed over the last several months. She sees Dr. Doherty, and Brandie Louis. HOSPITAL COURSE: The patient is doing okay. She was admitted with shortness of breath. Her workup initially she had a chest CT which showed cardiomegaly and pulmonary edema and a small effusion. Echo done on the showed an EF of 15% with dyskinetic apex and severe hypokinesis, moderate mitral regurgitation, moderate tricuspid regurgitation, pulmonary nephrology. Cardiology was consulted. Dr. Davila recommended treatment. She was on intermittent BiPAP. Dr. Doherty was consulted. Dr. Doherty felt that the Entresto should be continued if it was helping her cardiac function. Dr. Childers recommended Plavix and Eliquis alone. She was placed on BiDil. She was maintained on IV Lasix. She was maintained on IV Lasix, pretty much the whole time she was here. Plans were made for discharge but she was always reluctant to go home because of shortness of breath or feeling weakness, but she adamantly refused rehab. We consulted, discussed her care. There was initial decrease in her weight on admission from 171 down to 166 and then it trended upwards and trended downwards and it has kind of stabilized; reportedly 178 today, but no lower extremity edema. In any case, it was felt that we kind of maximized her inpatient care. She was at baseline O2, breathing had improved. I actually gave her increased dose of Lasix for about 3 days, but her creatinine bumped from 1.5 to 1.9 at discharge is 1.7. We consulted with hospice because at this point, the poor prognosis short and long-term and she was very adamant about refusing rehab. Her sodium is low at 131, as well. DISCHARGE DIAGNOSIS: Congestive heart failure which seems to be stable, Lipitor 40, Neurontin 100 at bedtime, Entresto 24-26, 1 b.i.d., Icar C daily, nateglinide, Plavix 75 daily, ProAir, Coreg 3.125 b.i.d., folic acid 1 daily Lasix 80 b.i.d., digoxin 125 daily, Lasix 40 daily if a greater than 2 pounds weight gain, Tylenol p.r.n., and metolazone 5 daily. As far as her anti-platelet, I am going to resume her Eliquis. She is on 5 b.i.d., but her GFR is 29. I think she should just be on it at 2.5. Prognosis is poor both short and long-term. We did set up with hospice which was [facility]. We will also continue her Eliquis, but I will do a 2.5 based on her renal function and her age is 78. DISCHARGE EXAMINATION: Cardiovascular is regular rate and rhythm, pulmonary bilateral breath sounds diminished at the bases but felt stable today. TIME SPENT ON DISCHARGE: 32 minutes. cc: MD Brandie Bautista MD James E. Boyle, MD Ashish K. Basu, MD
== END 2018-08-29 14:56 | disposition hospice, home (50) | DRG 291 ==
LOC: SUPCPDRO → 3N 10:17 → ED 10:17 → SUATTDRO 08-19 14:45 → 3N 08-22 08:48
PROVIDERS: ATTEND Internal Medicine
CPT/HCPCS: 71010; 71020; 71045; 71046; 71250; 74022; 76700; 80048; 80053; 80069; 80162; 81001; 81050; 82550; 82570; 82575; 82607; 82728; 82746; 82805; 82948; 83540; 83550; 83880; 83935; 84145; 84156; 84300; 84443; 84484; 84540; 85025; 85027; 85379; 85610; 85651; 85730; 86140; 87077; 87088; 87186; 87205; 93005; 93306; 94640; 94660; 94761; 94799; 96374; 97110; 97116; 97162; 97165; 97530; 97535; 99285; A9270; C8929; J0696; J1335; J1940; J2020; Q9957; XXXXX